=== PATIENT | female | born 1960 | race Caucasian/White ===

== ENCOUNTER 2017-06-06 14:00 | Outpatient (RCR) | payer OTHER, SELFPAY ==
--- NOTE | 2017-06-06 14:30 | HP.PTEVAL_ITS ---
Patient's Visit Information KATIANA ANTONIO is a 57 year old F referred to Physical Therapy by Arabella Mitchell MD with a diagnosis of cervicalagia. Date of Evaluation: 06/06/17 Physical Therapist: Guero Poole, PT, - Visit Plan Frequency: 2x /Week Duration: 6 Weeks Plan: Manula therapy cervical traction ..mobs OA/AA,C2-4,US/MHP,MECKENZIE EX' SPROGRESS TO CERVICAL /POSTURE AL EX'S - Subjective Subjective: This 57 y/o female presenst to physical therapy with cervicalagia. Patient has had pain since 2016 with dull ache in cervical spine upper c- spine. Tried massage tight muscles. Pateint had throidectomy 2 years ago.Patient symptoms constant with sypmtoms worse sitting ,driving,work demands at computer.Denies parathesia/tingling. Denies STARKS/tinnitus/nuasea. No PT/ chirprcator.Patient is working 1/2 days because pain. Pain affects ADLS' and housework activities. No trauma/injury. SOCAIL: . VOCATION:[employer] - Pain Bilateral Neck Pain Intensity (Out of 10): 8 Pain Intensity Range: 10 - Objective POSTURE: mild foward posture ,head foward. PALAPTION: tender UT/LEVATOR. NEURO : denies parathesia/tingling ,reflexes C5-6-7 2/3. BUE AROM: WFL. MMT: 4/5, shoulder 4-/5. CERVICAL ROM: flexion min loss,lateral /flexion left geater than right,extension min loss,retraction/protraction min loss. - Special Tests C/S Radiculapathy - Left Upper limb tension test: Negative C/S Radiculapathy - Right Upper limb tension test: Negative C/S Radiculapathy - Left Spurlings: Negative C/S Radiculapathy - Right Spurlings: Negative C/S Radiculapathy - Left Cervical distraction: Negative C/S Radiculapathy - Right Cervical distraction: Negative C/S Radiculapathy - Left Relief test: Negative C/S Radiculapathy - Right Relief test: Negative C/S Radiculapathy - Valsalva: Negative Sharp Ada: Negative Vertebral Artery Test: Negative Alar Ligament Test: Negative Cervical Sitting: Protrusion - Mechanical Response: No effect Cervical Sitting: Protrusion - Symptoms During Testing: Increases Cervical Sitting: Protrusion - Symptoms After Testing: No worse Cervical Sitting: Retraction - Mechanical Response: No effect Cervical Sitting: Retraction - Symptoms During Testing: No effect Cervical Sitting: Retraction - Symptoms After Testing: No effect - Goals Goal 1:: Independant with HEP Goal Time Frame: 4-6 Weeks Goal 2:: Independant with posture for ADL'S Goal Time Frame: 4-6 Weeks Goal 3:: Decrease cervical pain by 50% or greatee to improve function and ADL'S Goal Time Frame: 4-6 Weeks Goal 4:: Patient increase cervical ROM to WFL for function of recovery Goal Time Frame: 4-6 Weeks Goal 5:: Patient be able to perform ADLS' and job demnads with min limiations. Goal Time Frame: 4-6 Weeks Goal 6:: Patient be d/c to prophalxis Goal Time Frame: 4-6 Weeks - Rehabilitation Potential Physical Therapy Diagnosis: This patient has cervicalalgia with upper c-pine dysfunction with pain ,diffiulty with sitting,job demands ,pain with cervical ROM thus benifit from skilled PT Rehabilitation Potential: Good - Anticipated Interventions Patient/Client Instruction: Educate patient on: Condition, Plan of Care For the Purpose of:: To decrease pain, To increase ROM, To improve muscle performance and motor function, To improve ability to perform ADL's, To increase tolerance to activity/condition/position, To improve ability of physical actions for home/community/work/leisure, To improve health of tissue, To decrease soft tissue restriction, To increase flexibility/ROM, To reduce risk of recurrence, To improve ability to perform tasks related to life management Therapeutic Exercise to Include: Strength training, Postural training, Flexibilty training, Yumiko Exercises For the Purpose of:: To decrease pain, To increase ROM, To improve muscle performance and motor function, To improve ability to perform ADL's, To increase tolerance to activity/condition/position, To improve performance and independence with ADL's, To decrease level of supervision to perform tasks, To improve ability of physical actions for home/community/work/leisure, To improve health of tissue, To decrease soft tissue restriction, To increase flexibility/ ROM, To assume or resume ADL's, To improve ability to perform tasks related to life management Manual Therapy Techniques to Include: Mobilization, Soft tissue mobilization Comment: OA/AA C2-5,CERVICAL TRACTION For the Purpose of:: To decrease pain, To increase ROM, To improve nutrient delivery to tissue, To improve muscle performance and motor function, To decrease soft tissue restriction, To increase flexibility/ROM Thermo therapy (hot pack): Yes Ultrasound (thermal/non thermal): Yes Intermittent cervical traction: - 14-22# [id number] For the Purpose of:: To decrease pain, To increase ROM, To improve nutrient delivery to tissue, To increase oxygenation perfusion, To improve health of tissue, To decrease soft tissue restriction, To increase flexibility/ROM Thank you for the opportunity to evaluate your patient. For Medicare and Medicare HMO plans, please review the plan of care and approve it. It will need to be FAXED BACK to us at [phone] for Medicare purposes. Please let me know if there are questions or concerns regarding this plan of care. Physician Signature: Date:
--- NOTE | 2017-09-06 14:29 | HP.PTDCNRP_ITS ---
HP - Discharge Summary (1) - Patient Information KATIANA ANTONIO was seen in my office for initial evaluation on 06/06/17. The following Plan of Care was established for this patient: Initial Frequency: 2x /Week Initial Duration: 6 Weeks - Anticipated Interventions Patient/Client Instruction: Educate patient on: Condition, Plan of Care For the Purpose of:: To decrease pain, To increase ROM, To improve muscle performance and motor function, To improve ability to perform ADL's, To increase tolerance to activity/condition/position, To improve ability of physical actions for home/community/work/leisure, To improve health of tissue, To decrease soft tissue restriction, To increase flexibility/ROM, To reduce risk of recurrence, To improve ability to perform tasks related to life management Therapeutic Exercise to Include: Strength training, Postural training, Flexibilty training, Yumiko Exercises For the Purpose of:: To decrease pain, To increase ROM, To improve muscle performance and motor function, To improve ability to perform ADL's, To increase tolerance to activity/condition/position, To improve performance and independence with ADL's, To decrease level of supervision to perform tasks, To improve ability of physical actions for home/community/work/leisure, To improve health of tissue, To decrease soft tissue restriction, To increase flexibility/ ROM, To assume or resume ADL's, To improve ability to perform tasks related to life management Manual Therapy Techniques to Include: Mobilization, Soft tissue mobilization Comment: OA/AA C2-5,CERVICAL TRACTION For the Purpose of:: To decrease pain, To increase ROM, To improve nutrient delivery to tissue, To improve muscle performance and motor function, To decrease soft tissue restriction, To increase flexibility/ROM Thermo therapy (hot pack): Yes Ultrasound (thermal/non thermal): Yes Intermittent cervical traction: - -# [id number] For the Purpose of:: To decrease pain, To increase ROM, To improve nutrient delivery to tissue, To increase oxygenation perfusion, To improve health of tissue, To decrease soft tissue restriction, To increase flexibility/ROM This patient was last seen in our office 07/04/17. Pertinent comments regarding their Physical therapy will appear below: Patient seen for PT for cervicalalgia. PT focus on US /MHP, CERVICAL postural ex 's,manual therapy -STM . Patient was getting minmal better pain and STARKS ,thus is d/c to RTD. At this point I will be discontinuing this patient from physical therapy. I would be happy to see this patient again in the future if found appropriate by the physician. Thank you! Guero Poole, PT,
== END 2017-07-04 19:00 | disposition home or self-care (01) ==
LOC: PT 06-13 14:00
PROVIDERS: Family Provider Family Medicine; PCP Family Medicine; Visit Provider Family Medicine
DX: M54.2 Cervicalgia (principal)
CPT/HCPCS: 97012; 97035; 97110; 97140; 97161

== ENCOUNTER → 2018-05-11 14:19 | Outpatient (CLI) | payer OTHER, SELFPAY ==
--- NOTE | 2018-05-11 14:22 | BI_ITS ---
MAMMOGRAPHY - BILATERAL SCREENING REASON FOR EXAM: Female, 58 years old. Routine annual screening examination. PERTINENT HISTORY: Non-contributory. TECHNIQUE: Digital bilateral breast fausto (3D mammographic acquisition) in the CC and MLO projections. 2-D mediolateral oblique (MLO) and craniocaudad (CC) views of both breasts were obtained. CAD: Full Field Digital Mammography with Computer Added Detection was performed. COMPARISON: Comparison is made with prior study dated May 04, 2017 and March 25, 2016. FINDINGS: Breast Composition: There are scattered areas of fibroglandular density. There are no dominant masses or suspicious calcifications. No other significant abnormalities are identified. There has been no significant change since the prior study. BI/SCREENING MAMM (CAD), BILAT IMPRESSION: Stable bilateral screening mammogram. Yearly follow-up mammogram recommended. (A) ASSESSMENT CATEGORY: BIRADS Category 1: Negative. A letter regarding these results will be sent to the patient by the facility within 30 days. Approximately 10% of breast cancers are not detected by mammography. A normal mammogram should not delay biopsy of a clinically suspicious abnormality. [id number] Electronically Signed: Cyrus No MD at 15:39 EDT Tel [phone], Service support ,
== END ==
PROVIDERS: Family Provider Family Medicine; PCP Family Medicine; Referring Provider Family Medicine; Visit Provider Family Medicine
DX: Z12.31 Encounter for screening mammogram for malignant neoplasm of breast (principal)
CPT/HCPCS: 77063; 77067

== ENCOUNTER → 2019-05-13 15:28 | Outpatient (CLI) | payer OTHER, SELFPAY ==
--- NOTE | 2019-05-13 15:31 | BI_ITS ---
MAMMOGRAPHY - BILATERAL SCREENING REASON FOR EXAM: Female, 59 years old. Routine annual screening examination. PERTINENT HISTORY: Non-contributory. TECHNIQUE: Digital bilateral breast macrina (3D mammographic acquisition) in the CC and MLO projections. 2-D mediolateral oblique (MLO) and craniocaudad (CC) views of both breasts were obtained. CAD: Full Field Digital Mammography with Computer Added Detection was performed. COMPARISON: Comparison is made with prior study dated May 11, 2018 and May 04, 2017. FINDINGS: Breast Composition: There are scattered areas of fibroglandular density. There are no dominant masses or suspicious calcifications. No other significant abnormalities are identified. There has been no significant change since the prior study. BI/SCREEN MAMM (CAD) W/MACRINA BILAT IMPRESSION: Stable bilateral screening mammogram. Yearly follow-up mammogram recommended. (A) ASSESSMENT CATEGORY: BIRADS Category 1: Negative. A letter regarding these results will be sent to the patient by the facility within 30 days. Approximately 10% of breast cancers are not detected by mammography. A normal mammogram should not delay biopsy of a clinically suspicious abnormality. [id number] Electronically Signed: Cyrus No, at 8:41 EDT , Service support ,
== END ==
PROVIDERS: Family Provider Family Medicine; PCP Family Medicine; Referring Provider Family Medicine; Visit Provider Family Medicine
DX: Z12.31 Encounter for screening mammogram for malignant neoplasm of breast (principal)
CPT/HCPCS: 77063; 77067

== ENCOUNTER → 2019-05-21 18:00 | Outpatient (CLI) | payer OTHER, SELFPAY | PROVIDERS: Family Provider Family Medicine; PCP Family Medicine; Referring Provider Family Medicine; Visit Provider Family Medicine | DX: R19.7 Diarrhea, unspecified (principal) | CPT/HCPCS: 87177; 87209; 87493; 87506 ==

== ENCOUNTER → 2019-05-23 07:54 | Outpatient (CLI) | payer OTHER, SELFPAY ==
--- NOTE | 2019-05-23 08:01 | US_ITS ---
STUDY: ABDOMINAL ULTRASOUND - RIGHT UPPER QUADRANT REASON FOR VISIT: Female, 59 years old diarrhea TECHNIQUE: Ultrasound evaluation of the right upper quadrant was performed with real-time and static meek-scale imaging. TECHNICAL QUALITY: Adequate. COMPARISON: Prior study of 09/10/2015 FINDINGS: Liver: The liver measures 16.7 cm. There is normal echogenicity of the liver. The bile ducts are within normal limits. There is hepatic color flow. The direction of portal flow is hepatopetal. There is a 9 x 7 x 8 mm echogenic focus of the right hepatic lobe which may represent a small meningioma. Gallbladder: Normal distended gallbladder. The gallbladder wall measures 2.6 mm. There is a negative sonographic Greenwood's sign. There is no pericholecystic fluid. There are no gallstones. Common Bile Duct (C.B.D.): The common bile duct measures 1.6 mm. Pancreas: Normal size of the head, body and tail of the pancreas. There is normal echogenicity of the pancreas. There is no demonstrated pancreatic mass or cyst. Right Kidney: Normal size of the right kidney. The right kidney measures 11.4 x 4.3 x 5.1 cm. Normal renal cortex. The right cortex measures 1.5 cm. There is a 1.2 x 1.3 x 1.0 cm cyst. There is a nonobstructing calculus measuring 0.5 x 0.5 x 0.4 cm. There is no right hydronephrosis. US/Abdomen Limited IMPRESSION: Echogenic focus of the right hepatic lobe measuring 9 x 7 x 8 mm which may represent a small hemangioma. Small cyst and small nonobstructing calculus of the right kidney. Electronically Signed: Дмитрий Moura MD at 17:31 EDT , Service support ,
== END ==
PROVIDERS: Family Provider Family Medicine; PCP Family Medicine; Referring Provider Family Medicine; Visit Provider Family Medicine
DX: R19.7 Diarrhea, unspecified (principal)
CPT/HCPCS: 76705

== ENCOUNTER → 2019-06-03 11:08 | Outpatient (CLI) | payer OTHER, SELFPAY ==
--- NOTE | 2019-06-03 11:10 | NM_ITS ---
CLINICAL: 59-year-old female with reported history of right upper quadrant abdominal pain. RADIONUCLIDE HEPATOBILIARY SCINTIGRAPHY COMPARISON: Abdominal ultrasound report 05/23/2019, CCK hepatobiliary scintigraphy report 09/22/2015 FINDINGS: Following the intravenous administration of 5.2 mCi of 99m Tc Mebrofenin, hepatobiliary images reveal: 1. Relatively prompt and homogeneous radiopharmaceutical concentration is noted by a normal sized liver. No parenchymal defects are identified. 2. Gallbladder activity is identified at 10 minutes post radiopharmaceutical administration. 3. Small intestinal tract is observed at 15 minutes following tracer injection. 4. Washout of the radiopharmaceutical by the hepatic parenchyma appears qualitatively normal. 5. There is scintigraphic evidence of pre-CCK duodenal gastric reflux. Cholecystokinin (0.02 ug/kg) was administered intravenously over a 30-minute period. The post CCK gallbladder ejection fraction calculated at 20 minutes following Cholecystokinin administration was noted to be 61.0 % (normal greater than 35%). During 30 minutes of post CCK imaging, there is no scintigraphic evidence of reflux of the radiotracer into the common hepatic duct or refilling of the gallbladder. There is scintigraphic evidence of continued post CCK duodenal gastric reflux. NM/Hepatobilliary Img w/Pharm Int IMPRESSION: 1. A gallbladder ejection fraction calculated to be greater than 35% following the administration of Cholecystokinin makes the probability of functional hepatobiliary disease (gallbladder and/or sphincter of Oddi dyskinesia) and/or organic hepatobiliary disease (chronic acalculous cholecystitis and/or cystic duct syndrome) to be low. (Yenifer Solomon et al, Journal of Nuclear Medicine 32:1695, 1990). 2. There is scintigraphic evidence of pre-post CCK duodenal-gastric reflux. (Gloria et al, Nucl Med Tamia Ashley Press pg. 35, 1980). 3. Overall compared to the previous CCK hepatobiliary scintigraphy study report dated 09/22/2015, there is no significant interval change. Electronically Signed: Raffaele Washington DO at 22:05 EDT Tel , Service support ,
== END ==
PROVIDERS: Family Provider Family Medicine; PCP Family Medicine; Referring Provider Family Medicine; Visit Provider Family Medicine
DX: R19.7 Diarrhea, unspecified (principal)
CPT/HCPCS: 78227; A9537; J2805

== ENCOUNTER → 2019-08-20 11:10 | Outpatient (CLI) | payer OTHER, SELFPAY | PROVIDERS: Family Provider Family Medicine; PCP Family Medicine; Referring Provider Family Medicine; Visit Provider Family Medicine | DX: E03.9 Hypothyroidism, unspecified (principal) | CPT/HCPCS: 36415 ==

== ENCOUNTER → 2020-05-21 09:52 | Outpatient (CLI) | payer OTHER, SELFPAY ==
--- NOTE | 2020-05-21 09:56 | BI_ITS ---
MAMMOGRAPHY - BILATERAL SCREENING REASON FOR EXAM: Female, 60 years old. Routine annual screening examination. PERTINENT HISTORY: Non-contributory. TECHNIQUE: Digital bilateral breast macrina (3D mammographic acquisition) in the CC and MLO projections. 2-D mediolateral oblique (MLO) and craniocaudad (CC) views of both breasts were obtained. CAD: Full Field Digital Mammography with Computer Added Detection was performed. COMPARISON: Comparison is made with prior study dated 05/13/2019 05/11/2018. FINDINGS: Breast Composition: There are scattered areas of fibroglandular density. There are no dominant masses or suspicious calcifications. No other significant abnormalities are identified. There has been no significant change since the prior study. BI/SCREEN MAMM (CAD) W/MACRINA BILAT IMPRESSION: Stable bilateral screening mammogram. Yearly follow-up mammogram recommended. (A) ASSESSMENT CATEGORY: BIRADS Category 1: Negative. A letter regarding these results will be sent to the patient by the facility within 30 days. Approximately 10% of breast cancers are not detected by mammography. A normal mammogram should not delay biopsy of a clinically suspicious abnormality. [id number] Electronically Signed: Cyrus No, at 12:22 EDT , Service support ,
== END ==
PROVIDERS: PCP Family Medicine; Referring Provider Family Medicine; Visit Provider Family Medicine
DX: Z12.31 Encounter for screening mammogram for malignant neoplasm of breast (principal)
CPT/HCPCS: 77063; 77067

== ENCOUNTER → 2020-09-09 | Outpatient (CLI) | payer OTHER, SELFPAY | END | disposition home or self-care (01) | LOC: LABSPEC 15:10 | PROVIDERS: PCP Family Medicine; Referring Provider Family Medicine; Visit Provider Family Medicine | DX: Z20.822 Contact with and (suspected) exposure to COVID-19 (principal) | CPT/HCPCS: 87635; U0005; U0003 ==

== ENCOUNTER → 2020-09-21 16:53 | Outpatient (CLI) | payer OTHER, SELFPAY ==
--- NOTE | 2020-09-21 16:57 | RAD_ITS ---
STUDY: X-RAY CHEST REASON FOR EXAM: Female, 60 years old. COUGH, CHEST CONGESTION, SINUS ISSUES x4 WEEKS, TREATED WITH Z-PACK- NO IMPROVEMENT TECHNIQUE: PA and lateral views of the chest. COMPARISON: 06/27/2013. FINDINGS: The lungs are clear and expanded. There is no demonstrated pleural abnormality. Normal size heart. Normal mediastinum and kelly. Normal visualized pulmonary arteries. There is atherosclerotic calcification of the aortic arch with tortuosity. Normal visualized thoracic spine. Normal visualized ribs, clavicles, and shoulders. Nonspecific increased gas pattern throughout the bowel. RAD/Chest PA and Lateral IMPRESSION: No acute cardiopulmonary disease. Electronically Signed: Edwige Villagomez MD at 0:39 EST , Service support ,
== END ==
PROVIDERS: PCP Family Medicine; Referring Provider Family Medicine; Visit Provider Family Medicine
DX: J40 Bronchitis, not specified as acute or chronic (principal)
CPT/HCPCS: 71046

== ENCOUNTER 2020-10-23 13:46 | Outpatient (RCR) | payer OTHER, SELFPAY ==
[2020-10-23] MEDS: COVID-19 VACC, MRNA(PFIZER)/PF 30 MCG/0.3 ML SYRINGE IM (13:41)
[2020-11-13] MEDS: COVID-19 VACC, MRNA(PFIZER)/PF 30 MCG/0.3 ML SYRINGE IM (13:22)
== END 2021-01-19 23:59 ==
LOC: IMMUN 13:46
PROVIDERS: PCP Family Medicine; Visit Provider Family Medicine
DX: Z23 Encounter for immunization (principal)
CPT/HCPCS: 0001A; 0002A; 91300

== ENCOUNTER → 2020-12-07 10:08 | Outpatient (CLI) | payer OTHER, SELFPAY | PROVIDERS: PCP Family Medicine; Visit Provider Family Medicine | DX: E03.9 Hypothyroidism, unspecified (principal) ==

== ENCOUNTER → 2021-05-06 | Outpatient (CLI) | payer OTHER, SELFPAY | END | disposition home or self-care (01) | LOC: LABSPEC 16:24 | PROVIDERS: PCP Family Medicine; Referring Provider Family Medicine; Visit Provider Family Medicine | DX: U07.1 COVID-19 (principal) | CPT/HCPCS: 87635; U0005; U0003 ==

== ENCOUNTER → 2021-05-28 08:31 | Outpatient (CLI) | payer OTHER, SELFPAY ==
--- NOTE | 2021-05-28 08:32 | BI_ITS ---
MAMMOGRAPHY - BILATERAL SCREENING REASON FOR EXAM: Female, 61 years old. Routine annual screening examination. PERTINENT HISTORY: Non-contributory. TECHNIQUE: Digital bilateral breast macrina (3D mammographic acquisition) in the CC and MLO projections. 2-D mediolateral oblique (MLO) and craniocaudad (CC) views of both breasts were obtained. CAD: Full Field Digital Mammography with Computer Added Detection was performed. COMPARISON: Comparison is made with prior study 05/21/2020 and 05/13/2009. FINDINGS: Breast Composition: There are scattered areas of fibroglandular density. There are no dominant masses or suspicious calcifications. No other significant abnormalities are identified. There has been no significant change since the prior study. BI/SCRN MAMM (CAD)W/MACRINA BILAT IMPRESSION: Stable bilateral screening mammogram. Yearly follow-up mammogram recommended. (A) ASSESSMENT CATEGORY: BIRADS Category 1: Negative. A letter regarding these results will be sent to the patient by the facility within 30 days. Approximately 10% of breast cancers are not detected by mammography. A normal mammogram should not delay biopsy of a clinically suspicious abnormality. [id number] Electronically Signed: Cyrus No MD at 9:39 EDT , Service support ,
== END ==
PROVIDERS: PCP Family Medicine; Referring Provider Family Medicine; Visit Provider Family Medicine
DX: Z12.31 Encounter for screening mammogram for malignant neoplasm of breast (principal)
CPT/HCPCS: 77063; 77067

== ENCOUNTER 2021-11-09 16:38 | Outpatient (CLI) | payer BC, SELFPAY | END 2021-11-09 23:59 | disposition home or self-care (01) | LOC: MFPLAB 16:40 | PROVIDERS: PCP Family Medicine; Referring Provider Family Medicine; Visit Provider Family Medicine | DX: E03.9 Hypothyroidism, unspecified (principal) | CPT/HCPCS: 36415 ==

== ENCOUNTER → 2022-05-18 | Outpatient (CLI) | payer BC, SELFPAY ==
--- NOTE | 2022-05-18 12:11 | RAD_ITS ---
HISTORY: pain. TECHNIQUE: XR Ribs Unilateral Min 2 Views. COMPARISON: Chest 09/21/2020. FINDINGS: BONES : Nondisplaced fractures of the left eighth, ninth, and 10th ribs anteriorly. SOFT TISSUES: Left lung clear. RAD/Ribs Unil 2V No CXR IMPRESSION: Nondisplaced fractures of the anterior left eighth, ninth, and 10th ribs. Electronically Signed: Mary Ellen White MD at 16:28 EDT ,
== END | disposition home or self-care (01) ==
LOC: MTRAD 11:58
PROVIDERS: PCP Family Medicine; Referring Provider Family Medicine; Visit Provider Family Medicine
DX: R07.81 Pleurodynia (principal)
CPT/HCPCS: 71100

== ENCOUNTER → 2022-05-31 | Outpatient (CLI) | payer BC, SELFPAY ==
--- NOTE | 2022-05-31 08:30 | BI_ITS ---
MAMMOGRAPHY - BILATERAL SCREENING REASON FOR EXAM: Female, 62 years old. Routine annual screening examination. PERTINENT HISTORY: Non-contributory. TECHNIQUE: Digital bilateral breast macrina (3D mammographic acquisition) in the CC and MLO projections. 2-D mediolateral oblique (MLO) and craniocaudad (CC) views of both breasts were obtained. CAD: Full Field Digital Mammography with Computer Added Detection was performed. COMPARISON: Comparison is made with prior study dated 05/28/2021 and 05/21/2020. FINDINGS: Breast Composition: There are scattered areas of fibroglandular density. There are no dominant masses or suspicious calcifications. No other significant abnormalities are identified. There has been no significant change since the prior study. BI/SCRN MAMM (CAD)W/MACRINA BILAT IMPRESSION: Stable bilateral screening mammogram. Yearly follow-up mammogram recommended. (A) ASSESSMENT CATEGORY: BIRADS Category 1: Negative. A letter regarding these results will be sent to the patient by the facility within 30 days. Approximately 10% of breast cancers are not detected by mammography. A normal mammogram should not delay biopsy of a clinically suspicious abnormality. [id number] Electronically Signed: Cyrus No MD at 9:20 EDT ,
== END | disposition home or self-care (01) ==
LOC: OPBI 08:29
PROVIDERS: PCP Family Medicine; Referring Provider Family Medicine; Visit Provider Family Medicine
DX: Z12.31 Encounter for screening mammogram for malignant neoplasm of breast (principal)
CPT/HCPCS: 77063; 77067

== ENCOUNTER → 2022-08-16 | Outpatient (CLI) | payer BC, SELFPAY ==
--- NOTE | 2022-08-16 16:44 | CT_ITS ---
EXAM: CT MAXILLOFACIAL SINUSES WITHOUT INTRAVENOUS CONTRAST CLINICAL INDICATION: CHRONIC SINUSITIS TECHNIQUE: Helically acquired images were obtained of the maxillofacial sinuses without intravenous contrast. This CT exam was performed using one or more of the following dose reduction techniques: automated exposure control, adjustment of the mA and/or kV according to patient size, and/or use of iterative reconstruction technique. This report was created using [employer]iq report BrightContext technology. COMPARISON: None. FINDINGS: MAXILLARY SINUSES: There is mucosal thickening in the maxillary sinuses and scattered ethmoid air cells. No air-fluid levels are identified. There is soft tissue in the ostiomeatal complexes bilaterally. SPHENOID SINUSES: Clear. FRONTAL SINUSES: Clear. ETHMOID AIR CELLS: See above. NASAL CAVITY/SEPTUM: Nasal septum is midline. Nasal turbinates are unremarkable. BONES/JOINTS: Anterior cranial fossa is unremarkable. ORBITS: Unremarkable. DENTAL: Unremarkable as visualized. No periodontal osseous erosion. CT/Sinus/Facial Bone IMPRESSION: Mucosal thickening in the maxillary and ethmoid sinuses compatible with chronic sinusitis. No air-fluid levels are identified. There is soft tissue and mucosal thickening in the ostiomeatal complexes. Electronically Signed: Sedrick Leyva MD at 18:17 EST ,
== END | disposition home or self-care (01) ==
LOC: CT 16:43
PROVIDERS: PCP Family Medicine; Referring Provider Otolaryngology; Visit Provider Otolaryngology
DX: J32.8 Other chronic sinusitis (principal)
CPT/HCPCS: 70486

== ENCOUNTER → 2022-10-12 | Outpatient (CLI) | payer BC, SELFPAY ==
--- NOTE | 2022-10-12 15:09 | RAD_ITS ---
EXAM: XR ABDOMEN, 2 VIEWS CLINICAL INDICATION: ABD PAIN TECHNIQUE: Frontal view of the abdomen/pelvis with upright view of the abdomen. This report was created using Marco Vasco report generation technology. COMPARISON: None. FINDINGS: LOWER THORAX: No acute pathology. INTRAPERITONEAL SPACE: No free air. GASTROINTESTINAL TRACT: Unremarkable. Non-obstructive. No bowel or stomach distention. ORGANS: Unremarkable as visualized. No organomegaly. No abnormal calcifications. BONES/JOINTS: No acute pathology. SOFT TISSUES: No acute pathology. RAD/Abd Inc Decub and/or Erect IMPRESSION: Unremarkable abdominal series. Electronically Signed: Conor Holly MD at 0:42 EST ,
--- NOTE | 2022-10-12 15:09 | RAD_ITS ---
EXAM: XR LEFT FOOT COMPLETE, 3 OR MORE VIEWS CLINICAL INDICATION: TOE PAIN TECHNIQUE: Frontal, lateral and oblique views of the left foot. This report was created using Pley report generation technology. COMPARISON: None. FINDINGS: BONES/JOINTS: Unremarkable. No acute fracture. No subluxation. Normal alignment. Preservation of the joint space. No sclerotic or destructive changes observed. SOFT TISSUES: Unremarkable. No soft tissue swelling or gas. No radiopaque foreign body. RAD/Foot min 3 Views IMPRESSION: Negative left foot x-rays. Electronically Signed: Conor Holly MD at 0:35 EST ,
== END | disposition home or self-care (01) ==
LOC: MTRAD 15:08
PROVIDERS: PCP Family Medicine; Visit Provider Family Medicine
DX: R10.12 Left upper quadrant pain (principal); M79.675 Pain in left toe(s)
CPT/HCPCS: 73630; 74019

== ENCOUNTER → 2022-10-24 | Outpatient (CLI) | payer BC, SELFPAY | END | disposition home or self-care (01) | LOC: MFPLAB 09:27 | PROVIDERS: PCP Family Medicine; Visit Provider Podiatrist | DX: M79.675 Pain in left toe(s) (principal) ==

== ENCOUNTER → 2022-11-09 | Outpatient (CLI) | payer BC, SELFPAY | END | disposition home or self-care (01) | LOC: MFPLAB 15:39 | PROVIDERS: PCP Family Medicine; Referring Provider Family Medicine; Visit Provider Family Medicine | DX: Z00.00 Encounter for general adult medical examination without abnormal findings (principal) | CPT/HCPCS: 36415 ==

== ENCOUNTER → 2022-11-17 | Outpatient (CLI) | payer BC, SELFPAY ==
--- NOTE | 2022-11-17 08:47 | US_ITS ---
STUDY: ABDOMINAL ULTRASOUND - RIGHT UPPER QUADRANT REASON FOR VISIT: Female, 62. Abdominal pain. TECHNIQUE: Ultrasound evaluation of the right upper quadrant was performed with real-time and static meek-scale imaging. TECHNICAL QUALITY: Adequate. COMPARISON: CT dated August 15, 2013 FINDINGS: Liver: The liver is diffusely echogenic consistent with fatty infiltration. The bile ducts are within normal limits. There is hepatic color flow. The direction of portal flow is hepatopetal. Gallbladder: Normal distended gallbladder. No gallbladder wall thickening. There is a negative sonographic Greenwood''s sign. There is no pericholecystic fluid. There are no gallstones. Common Bile Duct (C.B.D.): The common bile duct measures 4.4 mm. Pancreas: Normal size of the head and body of the pancreas. There is nonvisualization of the tail secondary to overlying bowel gas. There is normal echogenicity of the pancreas. There is no demonstrated pancreatic mass or cyst. Right Kidney: Normal size of the right kidney. The right kidney measures 11.2 cm in length. Normal renal cortex. There is a 1.1 x 1.1 cm cyst. There is a nonobstructing calculus measuring up to 6 mm. There is no right hydronephrosis. US/Abdomen Limited IMPRESSION: Fatty infiltration of the liver. Nonobstructing submillimeter right renal calculus. 1.1 cm right renal cyst. Electronically Signed: Michela Duran MD at 8:40 EDT ,
== END | disposition home or self-care (01) ==
PROVIDERS: PCP Family Medicine; Referring Provider Family Medicine; Visit Provider Family Medicine
DX: R10.12 Left upper quadrant pain (principal)
CPT/HCPCS: 76705

== ENCOUNTER → 2022-12-12 | Outpatient (CLI) | payer BC, SELFPAY ==
--- NOTE | 2022-12-12 09:33 | NM_ITS ---
CLINICAL: 62-year-old female with history of upper quadrant abdominal pain. RADIONUCLIDE HEPATOBILIARY SCINTIGRAPHY COMPARISON: Hepatobiliary scintigraphy study dated 06/03/2019, abdominal ultrasound report 12/07/2022 FINDINGS: Following the intravenous administration of 5.43 mCi of 99m Tc Mebrofenin, hepatobiliary images reveal: 1. Relatively prompt and homogeneous radiopharmaceutical concentration is noted by a normal sized liver. No parenchymal defects are identified. 2. Gallbladder activity is identified at 30 minutes post radiopharmaceutical administration. 3. Small intestinal tract is observed at 30 minutes following tracer injection. 4. Washout of the radiopharmaceutical by the hepatic parenchyma appears qualitatively normal. Cholecystokinin (0.02 ug/kg) was administered intravenously over a 30-minute period. The post CCK gallbladder ejection fraction calculated at 25 minutes following Cholecystokinin administration was noted to be 78 % (normal greater than 35%) compared to 61.0% calculated on the examination dated 06/03/2019. During 30 minutes of post CCK imaging, there is no scintigraphic evidence of reflux of the radiotracer into the common hepatic duct or refilling of the gallbladder. [place]/Hepatobilliary Img w/Pharm Int IMPRESSION: 1. NORMAL 99m Tc Mebrofenin hepatobiliary imaging examination with Cholecystokinin. A. A gallbladder ejection fraction calculated to be greater than 35% following the administration of Cholecystokinin makes the probability of functional hepatobiliary disease (gallbladder and/or sphincter of Oddi dyskinesia) and/or organic hepatobiliary disease (chronic acalculous cholecystitis and/or cystic duct syndrome) to be low. (Yenifer Solomon et al, Journal of Nuclear Medicine 32:1695, 1990). B. Overall compared to the previous hepatobiliary scintigraphy study dated 06/03/2019, there is no definitive interval change. Electronically Signed: Raffaele Washington, at 19:25 EDT ,
== END | disposition home or self-care (01) ==
LOC: NM 09:28
PROVIDERS: PCP Family Medicine; Referring Provider Family Medicine; Visit Provider Family Medicine
DX: R10.12 Left upper quadrant pain (principal)
CPT/HCPCS: 78227; A9537; J2805

== ENCOUNTER → 2022-12-14 | Outpatient (CLI) | payer BC, SELFPAY ==
--- NOTE | 2022-12-14 16:34 | CT_ITS ---
STUDY: CT ABDOMEN WITH CONTRAST REASON FOR EXAM: Female, 62 years old. Left upper quadrant pain, bloating x 1 month. RADIATION DOSAGE (If Supplied By Facility): CTDIvol = ( 8.75 ) mGy, DLP = ( 265.83 ) mGycm TECHNIQUE: Transaxial images were obtained post I.V. administration of IV 100mL Isovue-300, and all oral contrast. Sagittal and coronal images were reconstructed. Individualized dose optimization techniques were used for this CT. COMPARISON: 08/15/2013. FINDINGS: The visualized lung bases are unremarkable. The visualized portions of the heart are within normal limits. Normal liver. Normal gallbladder and extrahepatic biliary system. Normal spleen. Normal pancreas. Normal bilateral adrenal glands. Right kidney has a 3 mm nonobstructing upper pole stone, and a 1.3 cm mid renal cyst, otherwise normal right kidney. Normal left kidney. Evaluation of the GI tract is limited by absence of oral contrast. Cannot exclude stomach wall thickening. No dilated loops of bowel or evidence for obstruction. Cannot exclude segmental thickening of the andrew of the small or large bowel. Cannot exclude enteritis or colitis. Moderate diffuse fecal retention. Appendix is not seen. Normal abdominal aorta. Normal inferior vena cava. Normal retroperitoneum. Normal abdominal wall. Normal osseous structures. CT/Abdomen WITH IV Contrast IMPRESSION: No definite acute or significant abnormality seen. Electronically Signed: Mehul Richard MD at 17:07 EDT ,
== END | disposition home or self-care (01) ==
LOC: CT 16:33
PROVIDERS: PCP Family Medicine; Referring Provider Family Medicine; Visit Provider Family Medicine
DX: R10.12 Left upper quadrant pain (principal)
CPT/HCPCS: 74160; Q9967

== ENCOUNTER → 2022-12-14 | Outpatient (CLI) | payer BC, SELFPAY ==
[2022-12-14 18:00] LABS: Absolute Lymphocyte Count 2.29 X10^3/uL (0.83-4.51); Absolute Neutrophil Count 3.1 X10^3/uL (2.0-7.7); Basophil# 0.03 X10^3/uL; Basophil% 0.5 % (0-1); Eosinophil# 0.15 X10^3/uL; Eosinophils% 2.5 % (0-5); Hematocrit 45.8 % (37-47); Hemoglobin 15.3 g/dL (12.0-15.0); Lymphocyte # 2.29 X10^3/ul (0.83-4.51); Lymphocyte % 37.9 % (19-41); Mean Corp Hgb Conc 33.4 g/dL (32-36); Mean Corpuscular Hgb 32.8 pg (27.0-32.0); Mean Corpuscular Volume 98.3 fL (81-99); Mean Platelet Vol. 10.8 fl (6.2-12.0); Monocyte# 0.48 X10^3/uL; Monocyte% 7.9 % (0-10); NRBC Flagged by Analyzer 0 % (0-5); Neutrophil # 3.09 X10^3/uL (2.7-7.7); Platelet Count 173 K/mm3 (150-450); RBC Distribution Width CV 11.9 % (11.6-14.6); Red Blood Count 4.66 M/mm3 (4.2-5.4); White Blood Count 6.1 K/mm3 (4.4-11.0)
[2022-12-14 18:16] LABS: Amylase 51 U/L (25-115); Lipase 61 U/L (13-75)
[2022-12-14 18:37] LABS: Erythrocyte Sedimentation Rate 5 mm/hr (0-30)
== END | disposition home or self-care (01) ==
LOC: MFPLAB 16:14
PROVIDERS: PCP Family Medicine; Visit Provider Family Medicine
DX: R10.12 Left upper quadrant pain (principal)
CPT/HCPCS: 36415; 82150; 83690; 85025; 85652

== ENCOUNTER 2023-01-02 09:04 | Emergency (ER) | payer BC, SELFPAY ==
[2023-01-02 09:06] VITALS: BP 140/68; PULSE 101; RESP 18; TEMP 36.6; O2SAT 98; BMI 22.6
--- NOTE | 2023-01-02 09:16 | RAD_ITS ---
INDICATION: Pain EXAMINATION/TECHNIQUE: X-RAY - XR Abdomen Series W/ Chest 1 View COMPARISON: : October 12, 2022 FINDINGS: --Chest: LINES/DEVICES: None. LUNGS: No consolidation, edema or effusion. No pneumothorax. MEDIASTINUM AND CARDIOVASCULAR STRUCTURES: Cardiac silhouette not enlarged. Central airways and mediastinal contour are unremarkable. BONES AND SOFT TISSUES: No acute findings. --Abdomen: BOWEL GAS PATTERN: Non-obstructive. No bowel or stomach distention. FREE AIR: None visualized. CALCIFICATIONS: No abnormal calcifications observed. BONES AND SOFT TISSUES: No acute findings. There is a stable appearing Vicky lobe of the liver. RAD/Acute Abdomen Inc Chest IMPRESSION: Negative chest and abdominal series. Electronically Signed: Michela Duran MD at 10:24 EDT ,
[2023-01-02 09:39] LABS: Absolute Neutrophil Count 2.4 X10^3/uL (2.0-7.7); Basophil# 0.04 X10^3/uL; Basophil% 0.8 % (0-1); Eosinophil# 0.15 X10^3/uL; Eosinophils% 2.9 % (0-5); Hematocrit 49.9 % (37-47); Hemoglobin 17.1 g/dL (12.0-15.0); Lymphocyte % 40.9 % (19-41); Mean Corp Hgb Conc 34.3 g/dL (32-36); Mean Corpuscular Hgb 33.1 pg (27.0-32.0); Mean Corpuscular Volume 96.7 fL (81-99); Mean Platelet Vol. 9.9 fl (6.2-12.0); Monocyte% 7.8 % (0-10); NRBC Flagged by Analyzer 0 % (0-5); Neutrophil # 2.43 X10^3/uL (2.7-7.7); Neutrophil % 47.4 % (47-70); Platelet Count 153 K/mm3 (150-450); RBC Distribution Width CV 11.9 % (11.6-14.6); RBC Distribution Width SD 42.7 fl (35.1-43.9); Red Blood Count 5.16 M/mm3 (4.2-5.4); White Blood Count 5.1 K/mm3 (4.4-11.0)
[2023-01-02] MEDS: 0.9% Normal Saline 1,000 ML 1000 ML IV (09:40)
[2023-01-02] MEDS: Dicyclomine 20 MG/2 ML Vial IM (09:40)
[2023-01-02] MEDS: Ketorolac 15 MG/ML Vial IV (09:40)
[2023-01-02] MEDS: Metoclopramide 10 MG/2 ML Vial IV (09:40)
[2023-01-02 09:53] LABS: ALB/GLOB Ratio 0.9 RATIO (0.9-2.4); AST(SGOT) 46 U/L (15-37); Alanine Aminotransfer ALT/SGPT 57 U/L (13-56); Albumin, Serum 3.6 g/dL (3.2-5.0); Alkaline Phosphatase 95 U/L (45-117); Anion Gap 8 (5-15); BUN 11 mg/dL (7-18); BUN/Creat Ratio 24.6 RATIO (10-20); Calcium,Total 8.5 mg/dL (8.5-10.1); Chloride 106 mmol/L (98-107); Creatinine, Serum 0.45 mg/dL (0.55-1.02); EST Glomerular Filtration Rate 151 mL/min (>60); Est Glom Filt Rate - Afr Amer 183 mL/min (>60); Estimated Creatinine Clearance 100.61 ml/min; Globulin 3.8 g/dL (2.2-4.2); Glucose 105 mg/dL (74-106); Lipase 43 U/L (13-75); Potassium 3.6 mmol/L (3.5-5.1); Protein, Total 7.4 g/dL (6.4-8.2); Sodium Level 143 mmol/L (136-145)
[2023-01-02 10:40] LABS: Mucous, Urine 0 SEEN /hpf (<or=2+); Red Blood Cells-Urine 0 SEEN /hpf (0-5); Squamous Epithelial Cells - UA 0 SEEN /hpf (5-10)
[2023-01-02 10:56] LABS: Color, Urine Yellow (Yellow); Glucose, Dipstick Normal (Normal); Ketone-Dipstick 15 mg/dl (Negative); Leukocyte Esterase-Dipstick 100 /ul (Negative); Nitrite-Dipstick Negative (Negative); Occult Blood-Urine 10 /ul (Negative); Protein-Dipstick 30 mg/dl (Negative); Specific Gravity, Urine 1.015 (1.002-1.030); Urine Bilirubin Dipstick Negative (Negative); Urine Clarity Clear (Clear); Urine Urobilinogen Normal (Normal); Urine pH 6.5 (5.0 - 8.0)
[2023-01-02 11:08] LABS: White Blood Cells 5-10 SEEN /hpf (0-5)
[2023-01-02 11:09] LABS: Bacteria RARE /hpf (None Seen)
[2023-01-02 12:28] VITALS: BP 112/58; PULSE 87; RESP 16; O2SAT 94
--- NOTE | 2023-01-02 13:25 | EX.ED.DYSGE1 ---
HPI History of Present Illness Chief Complaint: Abd Pain Narrative Narrative: Patient is a 62-year-old female who is presenting to the ER because she believes that she has a stool obstruction. Patient's been having intermittent abdominal pain for the last several weeks. Patient's had 2 different CAT scans, ultrasounds of her abdomen with no answers. Patient states she has had small hard pieces of stool in the last couple days. Patient's been using [id number] laxatives with no relief. Patient was told that she had a stool obstruction from a CAT scan that was done on December 14. Patient continues to have intermittent abdominal pain, so she is coming into the ER today for reevaluation on January 02. No nausea, vomiting, fever. No other bowel or bladder changes . Patient has no fever or chills. No chest pain or shortness of breath. No bowel or bladder changes besides diarrhea for the laxatives that she has been using. Patient states that she has a left upper quadrant fullness intermittently that is not subsiding. Patient did have a colonoscopy years ago with no acute findings. PFSH PFSH Home Medications Omeprazole [Prilosec] 40 mg PO DAILY 12/10/15 [History Last Taken 11/26/15] ciprofloxacin HCl 500 mg tablet 500 mg PO BID #6 TABLETS 01/02/23 [Rx Last Taken Unknown] Allergy/AdvReac Type Severity Reaction Status Date / Time No Known Allergies Allergy Verified 01/02/23 09:05 Social History Smoking Status: Never smoker ROS ROS ED ROS Narrative REVIEW OF SYSTEMS: Unless otherwise stated in this report the patient's positive and negative responses for review of systems for constitutional, eyes, ENT, cardiovascular, respiratory, gastrointestinal, neurological, , musculoskeletal, and integument systems and related systems to the presenting problem are either stated in the history of present illness or were not pertinent or were negative for the symptoms and/or complaints related to the presenting medical problem. EXAM Physical Exam Narrative Exam Narrative: Vital signs reviewed and patient is not hypoxic. General: The patient appears well and in no apparent distress. Patient is resting comfortably on cart. Not toxic, lethargic, or listless. Skin: Warm, dry, no pallor noted. There is no rash noted. Head: Normocephalic, atraumatic Eye: Normal conjunctiva, no drainage, EOMI. PERRL. Ears, Nose, Mouth, and Throat: oral mucosa is moist. Nares patent. Mouth without vesicles. Cardiovascular: Regular Rate and Rhythm, no murmurs, gallops, or rubs Respiratory: Patient is in no distress, no accessory muscle use, lungs are clear to auscultation, no wheezing, rales or rhonchi Back: non-tender, no CVA tenderness bilaterally to percussion. NO CTLS midline or paraspinal tenderness to palpation. GI: Soft, Mild tenderness to palpation to left upper quadrant, no other guarding, rebound, rigidity. No peritoneal signs. No flank pain bilateral. Otherwise no tenderness to palpation, no masses appreciated. No rebound, guarding, or rigidity noted. Musculoskeletal: The patient has full range of motion of all extremities and joints with no difficulty. Patient has no motor, no sensory deficits. Neurological: A&O x4, normal speech, no focal neurological deficits. Psychiatric: Cooperative Const Vital Signs: 01/02/23 09:06 01/02/23 12:28 Temperature 97.8 F Temperature Source Temporal Pulse Rate 101 H 87 Respiratory Rate 18 16 Blood Pressure 140/68 H 112/58 L Blood Pressure Mean 92 76 Pulse Ox 98 94 Oxygen Delivery Method Room Air Room Air MDM MDM MDM Narrative Medical decision making narrative: Patient was educated on urinary tract infection, dehydration, proteinuria at discharge and on discharge paper. Patient will follow up with repeat urine testing next week. Lab Data Attestation: I reviewed the patient's lab results. Labs: Laboratory Results - last 24 hr 01/02/23 01/02/23 01/02/23 09:31 09:31 09:47 WBC 5.1 RBC 5.16 Hgb 17.1 H Hct 49.9 H MCV 96.7 MCH 33.1 H MCHC 34.3 RDW Std Deviation 42.7 RDW Coeff of Bing 11.9 Plt Count 153 MPV 9.9 Immature Gran % (Auto) 0.200 Neut % (Auto) 47.4 Lymph % (Auto) 40.9 Citrus % (Auto) 7.8 Eos % (Auto) 2.9 Baso % (Auto) 0.8 Absolute Neuts (auto) 2.4 Absolute Lymphs (auto) 2.10 Nucleated RBC % 0 Sodium 143 Potassium 3.6 Chloride 106 Carbon Dioxide 29.0 Anion Gap 8 BUN 11 Creatinine 0.45 L Estim Creat Clear Calc 100.61 Est GFR (MDRD) Af Amer 183 Est GFR (MDRD) Non-Af 151 BUN/Creatinine Ratio 24.6 H Glucose 105 Calcium 8.5 Total Bilirubin 0.30 AST 46 H ALT 57 H Alkaline Phosphatase 95 Total Protein 7.4 Albumin 3.6 Globulin 3.8 Albumin/Globulin Ratio 0.9 Lipase 43 Urine Color Yellow Urine Clarity Clear Urine pH 6.5 Ur Specific [place] 1.015 Urine Protein 30 H Urine Glucose (UA) Normal Urine Ketones 15 H Urine Occult Blood 10 H Urine Nitrite Negative Urine Bilirubin Negative Urine Urobilinogen Normal Ur Leukocyte Esterase 100 H Urine RBC 0 SEEN Urine WBC 5-10 SEEN Ur Squamous Epith Cells 0 SEEN Urine Bacteria RARE Urine Mucus 0 SEEN Radiography Chest X-Ray - ED: Read by ED Physician (Chest x-ray and abdominal x-ray shows no acute cardiopulmonary disease, no air-fluid levels, normal gas pattern, no obstruction. No ileus.) Diagnostic Testing: Clinical Impression(s) from Imaging Studies Acute Abdomen Series 01/02/23 09:16 IMPRESSION: Negative chest and abdominal series. Electronically Signed: Michela Duran MD at 10:24 EDT , Additional Tests and Interventions Additional Tests or Interventions: Patient felt better after IV fluids. Patient does have evidence of proteinuria and urinary tract infection. Patient was started on antibiotic. Patient to increase fluids. Patient will follow up with PCP for repeat urine testing. Patient was recommended that she needs to have a colonoscopy because she is artery had 2 different CAT scans, x-rays, and ultrasound. Patient's lab work is unremarkable. Patient understands to follow up with PCP or GI physician. No questions from patient or daughter discharge. Discharge Plan Triage Chief Complaint: Abd Pain ED Provider: Thaddeus Leija Dx/Rx/DC Orders Clinical Impression: Chronic abdominal pain, UTI (urinary tract infection), Dehydration, Proteinuria Instructions: Abdominal Pain, Urinary Tract Infections in Women, ED Dehydration (Adult), ED Proteinuria Prescriptions: New ciprofloxacin HCl [ciprofloxacin HCl] 500 mg tablet 500 mg PO BID Qty: 6 0RF No Action Omeprazole [Prilosec] 40 MG capsule 40 mg PO DAILY Primary Care Provider: Arabella Mitchell Referrals: Arabella Mitchell MD [Primary Care Provider] - Activity Restrictions/Additional Instructions: You have no signs of significant constipation on today's x-ray. You do have evidence of urinary tract infection. Urine culture is pending. Antibiotics were started. Follow-up with PCP. He may need to follow-up with GI physician for possible endoscopy or colonoscopy if you continue to have abdominal pain since you have multiple CAT scans, ultrasounds and test that are not showing any other acute abnormalities. You do not have any significant signs of any type of moderate to severe constipation. Disposition Disposition: Home, Self Care Discharge Date/Time: 01/02/23 13:56
== END 2023-01-02 13:56 | disposition home or self-care (01) ==
PROVIDERS: Emergency Provider Emergency Medicine; PCP Family Medicine; Visit Provider Emergency Medicine
DX: N39.0 Urinary tract infection, site not specified (principal); E86.0 Dehydration; R80.9 Proteinuria, unspecified; G89.29 Other chronic pain
CPT/HCPCS: 74022; 80053; 81001; 83690; 85025; 96361; 96372; 96374; 96375; 99283; J7030; A4216

== ENCOUNTER → 2023-04-25 | Outpatient (CLI) | payer BC, SELFPAY ==
[2023-04-25 18:43] LABS: Cholesterol 258 mg/dL (200); High Density Lipoprotein 58 mg/dL; T4 Total, Thyroxin 7.8 ug/dL (4.8-13.9); Thyroid Stim Hormone (TSH) 1.07 uIU/mL (0.358-3.74); Triglycerides 994 mg/dL
== END | disposition home or self-care (01) ==
LOC: MFPLAB 16:40
PROVIDERS: PCP Family Medicine; Visit Provider Family Medicine
DX: Z00.00 Encounter for general adult medical examination without abnormal findings (principal); E03.9 Hypothyroidism, unspecified
CPT/HCPCS: 36415; 80061; 84436; 84443

== ENCOUNTER → 2023-06-01 | Outpatient (CLI) | payer BC, SELFPAY ==
--- NOTE | 2023-06-01 09:14 | BI_ITS ---
MAMMOGRAPHY - BILATERAL SCREENING REASON FOR EXAM: Female, 63 years old. Routine annual screening examination. PERTINENT HISTORY: Non-contributory. TECHNIQUE: Digital bilateral breast macrina (3D mammographic acquisition) in the CC and MLO projections. 2-D mediolateral oblique (MLO) and craniocaudad (CC) views of both breasts were obtained. CAD: Full Field Digital Mammography with Computer Added Detection was performed. COMPARISON: Comparison is made with prior examination of May 31, 2022 and May 28, 2021. FINDINGS: Breast Composition: There are scattered areas of fibroglandular density. There are no dominant masses or suspicious calcifications. No other significant abnormalities are identified. There has been no significant change since the prior study. BI/SCRN MAMM (CAD)W/MACRINA BILAT IMPRESSION: Stable bilateral screening mammogram. Yearly follow-up mammogram recommended. (A) ASSESSMENT CATEGORY: BIRADS Category 1: Negative. A letter regarding these results will be sent to the patient by the facility within 30 days. Approximately 10% of breast cancers are not detected by mammography. A normal mammogram should not delay biopsy of a clinically suspicious abnormality. [id number] Electronically Signed: Cyrus No MD at 15:06 EDT ,
--- NOTE | 2023-06-01 09:21 | BD_ITS ---
STUDY: DUAL ENERGY X-RAY ABSORPTIOMETRY / DXA REASON FOR EXAM: Female, 63 years old. [id number] TECHNIQUE: Bone Mineral Density (BMD) measurements of lumbar spine and bilateral hips were obtained. COMPARISON: None. FINDINGS: Lumbar Spine (L1-L4): g/cm2 (0.807) / T-score (-2.2) / Z-score (-0.5) Findings are suggestive of osteopenia with a high fracture risk. Left Femur Total: g/cm2 (0.670) / T-score (-2.2) / Z-score (-1.1) Left Femoral Neck: g/cm2 (0.445) / T-score (-3.6) / Z-score (-2.2) Right Femur Total: g/cm2 (0.687) / T-score (-2.1) / Z-score (-1.0) Right Femoral Neck: g/cm2 (0.502) / T-score (-3.1) / Z-score (-1.7) BD/Dexa Bone Density Study IMPRESSION: The patient is considered osteoporotic as outlined below according to World Zachary Organization (WHO) criteria with a high fracture risk. Reference Information: The T-score is the number of standard deviations above or below the standard which is normal for young adults at their peak bone mineral density. The World Health Organization (WHO) interprets the T-scores as follows: Above -1 Normal bone density Between -1 and -2.5 Osteopenia Equal to / or below -2.5 Osteoporosis As a practical clinical guideline, osteopenia may be graded as follows: Mild -1 through -1.5 Moderate -1.6 through -2.0 Severe -2.1 through -2.4 The Z-score is the number of standard deviations above or below age-matched controls. A Z-score of less than -1.5 would be considered abnormal. References: 1. NIH Osteoporosis and Related Bone Diseases www osteo.org 2. International Society for Clinical Densitometry www iscd.org 3. National Osteoporosis Foundation www nof.org Electronically Signed: Cyrus No MD at 9:12 EDT ,
== END | disposition home or self-care (01) ==
LOC: OPBD 09:13
PROVIDERS: PCP Family Medicine; Referring Provider Family Medicine; Visit Provider Family Medicine
DX: Z00.00 Encounter for general adult medical examination without abnormal findings (principal); Z12.31 Encounter for screening mammogram for malignant neoplasm of breast; N95.9 Unspecified menopausal and perimenopausal disorder
CPT/HCPCS: 77063; 77067; 77080

== ENCOUNTER → 2023-07-07 | Outpatient (CLI) | payer BC, SELFPAY ==
[2023-07-07 11:58] LABS: AST(SGOT) 17 U/L (15-37); Alanine Aminotransfer ALT/SGPT 35 U/L (13-56); Cholesterol 148 mg/dL (200); High Density Lipoprotein 66 mg/dL; Triglycerides 136 mg/dL; Very Low Density Lipoprotein 27 mg/dL (5-40)
== END | disposition home or self-care (01) ==
LOC: MFPLAB 10:02
PROVIDERS: PCP Family Medicine; Visit Provider Family Medicine
DX: E78.2 Mixed hyperlipidemia (principal)
CPT/HCPCS: 36415; 80061; 84450; 84460

== ENCOUNTER → 2024-01-01 | Outpatient (CLI) | payer BC, SELFPAY ==
--- NOTE | 2024-01-01 10:23 | RAD_ITS ---
STUDY: X-RAY - ABDOMEN/PELVIS REASON FOR EXAM: Female, 63 years old. Left upper quadrant pain. TECHNIQUE: Two AP supine views of the abdomen and pelvis on 3 images. COMPARISON: None. FINDINGS: Normal visualized lung bases. Normal bowel gas pattern with air seen to the rectosigmoid. Moderate amount of feces in the colon. 3 mm in diameter calcification projected over the upper pole of the right kidney. 6 mm in diameter calcification projected over the spleen presumably representing a splenic granuloma. Normal osseous structures. RAD/Abd Inc Decub and/or Erect IMPRESSION: Probable right nephrocalcinosis and splenic granuloma. No acute abnormality. Electronically Signed: Daniel Stallings MD at 13:31 EDT ,
== END | disposition home or self-care (01) ==
PROVIDERS: PCP Family Medicine; Referring Provider Family Medicine; Visit Provider Family Medicine
DX: R10.12 Left upper quadrant pain (principal)
CPT/HCPCS: 74019

== ENCOUNTER → 2024-02-21 | Outpatient (CLI) | payer BC, SELFPAY ==
--- NOTE | 2024-02-21 12:46 | US_ITS ---
STUDY: THYROID ULTRASOUND REASON FOR EXAM: Female, 63 years old. pain and history of thyroid mass TECHNIQUE: Ultrasound evaluation of the thyroid was performed with real-time and static meek-scale imaging. COMPARISON: 07/06/2016 FINDINGS: RIGHT LOBE: The right lobe of the thyroid gland measures 1.6 x 0.6 x 0.8 cm. There is a heterogeneous echotexture. There are no demonstrated solid, cystic or complex lesions. LEFT LOBE: The left lobe of the thyroid gland measures 1.1 x 0.5 x 1.0 cm. There is a heterogeneous echotexture. There are no demonstrated solid, cystic or complex lesions. ISTHMUS: The isthmus measures 1 mm thick. . The regional lymph nodes are normal. US/Thyroid IMPRESSION: Suspect chronic thyroiditis with atrophy of the gland but no dominant nodule. Electronically Signed: Raffaele Santiago MD at 16:19 EDT ,
== END | disposition home or self-care (01) ==
PROVIDERS: PCP Family Medicine; Referring Provider Family Medicine; Visit Provider Family Medicine
DX: E07.9 Disorder of thyroid, unspecified (principal)
CPT/HCPCS: 76536

== ENCOUNTER → 2024-04-26 | Outpatient (CLI) | payer BC, SELFPAY ==
[2024-04-26 18:53] LABS: AST(SGOT) 26 U/L (15-37); Alanine Aminotransfer ALT/SGPT 41 U/L (13-56); Cholesterol 204 mg/dL (200); High Density Lipoprotein 85 mg/dL; Triglycerides 341 mg/dL; Very Low Density Lipoprotein 68 mg/dL (5-40)
== END | disposition home or self-care (01) ==
LOC: MFPLAB 15:30
PROVIDERS: PCP Family Medicine; Visit Provider Family Medicine
DX: E78.2 Mixed hyperlipidemia (principal)
CPT/HCPCS: 36415; 80061; 84450; 84460

== ENCOUNTER → 2024-06-06 | Outpatient (CLI) | payer BC, SELFPAY ==
--- NOTE | 2024-06-06 13:54 | BI_ITS ---
MAMMOGRAPHY - BILATERAL SCREENING REASON FOR EXAM: Female, 64 years old. Routine annual screening examination. PERTINENT HISTORY: Non-contributory. TECHNIQUE: Digital bilateral breast macrina (3D mammographic acquisition) in the CC and MLO projections. 2-D mediolateral oblique (MLO) and craniocaudad (CC) views of both breasts were obtained. CAD: Full Field Digital Mammography with Computer Added Detection was performed. COMPARISON: Comparison is made with prior study dated June 01, 2023 and May 31, 2022. FINDINGS: Breast Composition: There are scattered areas of fibroglandular density. There are no dominant masses or suspicious calcifications. No other significant abnormalities are identified. There has been no significant change since the prior study. BI/SCRN MAMM (CAD)W/MACRINA BILAT IMPRESSION: Stable bilateral screening mammogram. Yearly follow-up mammogram recommended. (A) ASSESSMENT CATEGORY: BIRADS Category 1: Negative. A letter regarding these results will be sent to the patient by the facility within 30 days. Approximately 10% of breast cancers are not detected by mammography. A normal mammogram should not delay biopsy of a clinically suspicious abnormality. [id number] Electronically Signed: Cyrus No MD at 14:46 EDT ,
--- OUTSIDE RECORDS SUMMARY | 2024-06-06 16:41 | XMS RPT_ITS | CCD ---
Author Organization [facility] Care Team Providers Care Force Dispatcher Name Role Phone Arabella Mitchell Primary Care Provider Allergies Allergy Classification Reported Allergen(s) Allergy Type Date of Onset Reaction(s) Facility (1 source) Promethazine Drug Allergy 11-16-2015 Intolerance [facility] Medications Completed/Discontinued Medications Medication Drug Class(es) Dates Sig (Normalized) Sig (Original) omeprazole 40 mg delayed release oral capsule (1 source) Proton Pump Inhibitor take 1 capsule by mouth once daily Omeprazole 40 mg capsule Take 40 mg by mouth once daily. 0 Active Comment on above: Take 40 mg by mouth once daily. Problems Problem Classification Problem Date Documented Da te Episodic/Chronic Complications of surgical procedures or medical care (1 source) Postoperative hypothyroidism; Translations: [Hypothyroidism, postsurgical] 03-28-2016 Chronic Results Test Name Value Interpretation Reference Range Tadeo Matute 02-19-2016 CONVERTED CLINICAL HISTORY OPERATIVE PROCEDURE: Intraoperative ultrasound, Substernal thyroidectomy/near total thyroidectomy, Nerve integrity monitoring CLINICAL INFORMATION: Substernal and multi nodule goiter [facility] CONVERTED ELECTRONIC SIGNATURE RANDY MATTHEW M.D., PATHOLOGIST (Electronic signature on file) Final Signed Out: 02/19/2016 16:12 [facility] CONVERTED FINAL DIAGNOSIS FINAL DIAGNOSIS: A) SUBSTERNAL GOITER, EXCISION - GOITER. 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 [facility] CONVERTED GROSS DESCRIPTION GROSS DESCRIPTION: A) Substernal goiter Received in formalin labeled with the patient's name and as substernal goiter is a 22 gm somewhat lobulated yellow dark palumbo encapsulated nodule that measures 4.3 x 4.0 x 2.5 cm. The specimen is inked and serially sectioned to reveal a vaguely loculated variegated dusky meek-palumbo cut surface with colloid nodules and with focal calcific change. Upon further sectioning, a dark meek-palumbo nodule is identified that measures 1.0 cm in greatest dimension. The specimen is representatively submitted in cassettes A1-A6 following brief decalcification. B) Near total thyroidectomy Received in formalin labeled with the patient's name and as near total thyroidectomy is a 21 gm thyroidectomy specimen that measures 8.0 x 4.7 x 2.5 cm. The capsular surface is frayed. The right thyroid lobe is inked orange; left thyroid inked sandra; isthmus is inked green. Sectioning shows a dusky pink cut surface with multiple colloid nodules and with no discrete mass identified. The specimen is representatively submitted as follows: B1-B3 right lobe from superior to inferior (cassette B2 subject to decalcification); B4-B6 left lobe from superior to inferior). EM:[facility] CONVERTED ORDERING PROVIDER Ordering Provider: MARGARET RUIZ [facility] Encounters Encounter Date Encounter Type Care Provider Facility Start: 02-17-2016 End: 02-17-2016 Patient encounter procedure Margaret Ruiz Work Phone: [facility] Start: 02-17-2016 Results Only Margaret Ruiz Work Phone: [facility] Procedures Date Procedure Procedure Detail Performing Clinician Start: 02-17-2016 CONVERTED SURGICAL PATHOLOGY Margaret Ruiz Work Phone: Start: 12-09-2015 Colonoscopy Margaret wallace Plan of Treatment Date Care Activity Detail Author Start: 12-08-2020 Colonoscopy COLONOSCOPY [facility] Start: 04-14-2020 Influenza vaccination INFLUENZA (#1) [facility] Start: 2010 SHINGRIX VACCINE (1 of 2) CONTRERAS GRIX VACCINE (1 of 2) [facility] Start: 2005 DIABETES SCREEN DIABETES SCREEN [facility] Start: 2005 LIPID SCREEN LIPID SCREEN [facility] Start: 2000 Mammography MAMMOGRAM [facility] Start: 1990 HPV TESTING HPV TESTING [facility] Start: 1981 PAP TESTING PAP TESTING [facility] Start: 1979 Urine microalbumin profile DTAP,TDAP ,TD (1 - Tdap) [facility] Start: 1978 ANNUAL PCP TEAM NURSE HEAD CANDICE DISEASE VISIT ANNUAL PCP TEAM CHRONIC DISEASE VISIT [facility] Start: 1978 HEPATITIS C SCREENING HEPATITIS C GAL WALLS [facility] Start: 1978 HIV SCREENING HIV SCREENING [facility] Payers Date Payer Category Payer Private Health Insurance [facility] PPO [id number] 2011-2019 PPO [id number] Social History Date Type Detail Facility [facility]: 12-17-2015 [facility] Start: 12-17-2015 Alcohol intake Current drinke r of alcohol (finding) [facility] Start: 11-30-2015 Alcohol Comment occasional [facility] Sex Assigned At Not on file [facility] Advance Directives Documents on File Type Date Recorded Patient Equine Dentist Expl anation Advance Directive(s) 12/09/2015 9:53 AM Additional Source Comments Source Comments (unrecognize d section and content) In the event this informatio n is protected by the Federal Confidentiality of Alcohol and Drug Abuse Patient Records regulations: The Federal rules restrict any use of the information to criminally investigate or prosecute any alcohol or drug abuse patient.[facility] FOR RECORDS PERTAINING TO PATIENTS WHO ARE OR HAVE BEEN ENROLLED IN A CHEMICAL DEPENDENCY/SUBSTANCEABUSE PROGRAM, SOME INFORMATION MAY BE OMITTED. This clinical summary was aggregated from multiple sources. Caution should be exercised in using it in the provision of clinical care. This summary normalizes information from multiple sources, and as a consequence, information in this document may materially change the coding, format and clinical context of patient data. In addition, data may be omitted in some cases. CLINICAL DECISIONS SHOULD BE BASED ON THE PRIMARY CLINICAL RECORDS. [employer] [facility]. provides no warranty or guarantee of the accuracy or completeness of information in this document.
== END | disposition home or self-care (01) ==
LOC: OPBI 13:54
PROVIDERS: PCP Family Medicine; Referring Provider Family Medicine; Visit Provider Family Medicine
DX: Z12.31 Encounter for screening mammogram for malignant neoplasm of breast (principal)
CPT/HCPCS: 77063; 77067

== ENCOUNTER → 2025-05-01 | Outpatient (CLI) | payer BC, SELFPAY ==
--- NOTE | 2025-05-01 14:16 | RAD_ITS ---
PROCEDURE: ABD INC DECUB AND/OR ERECT 05/01/2025 REASON FOR EXAM: ABOMINAL PAIN TECHNIQUE: Procedure Code: RADABDMV Modality: DX Procedure: ABD INC DECUB AND/OR ERECT COMPARISON: January 01, 2024, December 14, 2022 FINDINGS: Bowel gas: Gas is seen within the mildly distended stomach with air-fluid level. The small bowel and colon is otherwise unremarkable. Calcifications: Faintly seen, 4 mm calculus overlying the right upper pole is similar to prior CT of December 14, 2022. Bones: Mild curvature lower lumbar spine to the right may be positional or related to spasm. Other: No organomegaly. RAD/Abd Inc Decub and/or Erect IMPRESSION: Gas and fluid-filled stomach. Small calculus right upper pole is unchanged. Reading Location: [id number]
--- OUTSIDE RECORDS SUMMARY | 2025-05-01 18:33 | XMS RPT_ITS | CCD ---
Author Organization [facility] Care Team Providers Care Shade Cutter Name Role Phone Arabella Mitchell Primary Care Provider [phone] Paula Arabella S Primary Care Unavailable Jolliff, Arabella S Attending Unavailable Jolliff, Arabella S Referring Unavailable Jolliff, Arabella S Primary Care Unavailable Jolliff, Arabella S Attending Unavailable Jolliff, Arabella S Referring Unavailable Jolliff, Arabella S Primary Care Unavailable Jolliff, Arabella S Attending Unavailable Jolliff, Arabella S Primary Care Unavailable Jolliff, Arabella S Attending Unavailable Jolliff, Arabella S Referring Unavailable Jolliff, Arabella S Primary Care Unavailable Jolliff, Arabella S Attending Unavailable Allergies Allergy Classification Reported Allergen(s) Allergy Type Date of Onset Reaction(s) Facility (1 source) Promethazine Drug Allergy 11-16-2015 Intolerance [facility] Medications Current Medications Medication Drug Class(es) Dates Sig (Normalized) Sig (Original) ciprofloxacin 500 mg oral tablet (3 sources) Quinolone Antimicrobial Start: 01-02-2023 take 500 mg by mouth twice daily Ciprofloxacin Hcl Active 500 MG PO TWICE A DAY January 01, 2023 11:00pm omeprazole 40 mg delayed release oral capsule (14 sources) Proton Pump Inhibitor Start: 12-10-2015 take 1 capsule by mouth once daily Omeprazole (Prilosec) 40 MG capsule Active 40 MG PO DAILY December 09, 2015 11:00pm Comment on above: Take 40 mg by mouth once daily. Problems Active Problems Problem Classification Problem Date Documented Date Episodic/Chronic Complications of surgical procedures or medical care (1 source) Postoperative hypothyroidism; Translations: [Hypothyroidism, postsurgical] 03-28-2016 Chronic Disorders of lipid metabolism (1 source) Mixed hyperlipidemia; Translations: [Mixed hyperlipidemia] Onset: 05-20-2024 Chronic Fluid and electrolyte disorders (3 sources) Dehydration; Translations: [Dehydration] 01-10-2023 Episodic Genitourinary symptoms and ill-defined conditions (3 sources) Proteinuria; Translations: [Proteinuria, unspecified] 01-10-2023 Episodic Other screening for suspected conditions (not mental disorders or infectious disease) (1 source) Encounter for screening mammogram for malignant neoplasm of breast; Translations: [Encounter for screening mammogram for malignant neoplasm of breast] Onset: 07-01-2024 Episodic Urinary tract infections (3 sources) Urinary tract infectious disease; Translations: [Urinary tract infection, site not specified] 01-10-2023 Episodic Past or Other Problems Problem Classification Problem Date Documented Da te Episodic/Chronic Abdominal pain (4 sources) Chronic abdominal pain; Translations: [Unspecified abdominal pain] Onset: 01-09-2024 01-10-2023 Episodic Thyroid disorders (1 source) Disorder of thyroid, unspecified; Translations: [Disorder of thyroid, unspecified] Onset: 02-29-2024 Episodic Results Test Name Value Interpretation Reference Range Facility SCRN MAMM (CAD)W/MACRINA BILATo n 06-06-2024 SCRN MAMM (CAD)W/MACRINA BILAT [facility] [address] [place] [id number] SCRN MAMM (CAD)W/MACRINA BILAT MR#: [id number] Acct: [id number] Name: KATIANA ANTONIO Rep #: [id number] : 1960 F 64 From: Cyrus laureano MD PCP: Dr. Arabella Mitchell MD Status: [facility] Study: SCRN MAMM (CAD)W/MACRINA BILAT Date of Exam: 05/15 12/05 Exam# [id number] Ordering Dr: Arabella Mitchell MD [id number] MAMMOGRAPHY - BILATERAL SCREENING REASON FOR EXAM: Female, 64 years old. Routine annual screening examination. PERTINENT HISTORY: Non-contributory. TECHNIQUE: Digital bilateral breast macrina (3D mammographic acquisition) in the CC and MLO projections. 2-D mediolateral oblique (MLO) and craniocaudad (CC) views of both breasts were obtained. CAD: Full Field Digital Mammography with Computer Added Detection was performed. COMPARISON: Comparison is made with prior study dated June 01, 2023 and May 31, 2022. FINDINGS: Breast Composition: There are scattered areas of fibroglandular density. There are no dominant masses or suspicious calcifications. No other significant abnormalities are identified. There has been no significant change since the prior study. BI/SCRN MAMM (CAD)W/MACRINA BILAT IMPRESSION: Stable bilateral screening mammogram. Yearly follow-up mammogram recommended. (A) ASSESSMENT CATEGORY: BIRADS Category 1: Negative. A letter regarding these results will be sent to the patient by the facility within 30 days. Approximately 10% of breast cancers are not detected by mammography. A normal mammogram should not delay biopsy of a clinically suspicious abnormality. [id number] Electronically Signed: Cyrus No MD at 14:46 EDT Reading Location ID and State: [facility] / [place] , Service support , CC: Dr. Arabella Mitchell MD Warp Bleaching Vat Tender: Signed Normal [facility] AST(SGOT)on 04-26-2024 AST [Catalytic activity/Vol] 26 U/L Normal 15-37 [facility] Comment on above: Order Comment: Order Date: 07/07/23 Order Info: [id number] - LIPID Order Info: 192-8 - AST Order Info: [id number] - ALT Performed By: #### L 501.4100, L501.4405, L500.4100 #### [facility] [address] [place], [address] Alanine Aminotransferas (SGP T)on 04-26-2024 ALT [Catalytic activity/Vol] 41 U/L Normal 13-56 [facility] Comment on above: Order Comment: Order Date: 07/07/23 Order Info: [id number] - LIPID Order Info: 1920-03 - AST Order Info: [id number] - ALT Performed By: #### L 501.4100, L501.4405, L500.4100 #### [facility] [address] [place], [address] Lipid Profileon 04-26-2024 Cholesterol [Mass/Vol] 204 mg/dL High 200 [facility] Comment on above: Order Comment: Order Date: 07/07/23 Order Info: [id number] - LIPID Order Info: 1920-03 - AST Order Info: [id number] - ALT Result Comment: <200 mg/dL Desirable 200-240 mg/dL Borderline >240 mg/dL High Risk Performed By: #### L 501.4100, L501.4405, L500.4100 #### [facility] [address] [place], [address] Cholesterol in HDL [Mass/Vol] 85 mg/dL Normal [facility] Comment on above: Order Comment: Order Date: 07/07/23 Order Info: [id number] - LIPID Order Info: 1920-03 - AST Order Info: 1742-01 - ALT Result Comment: The drugs N-Acetylcysteine and Metamizole may falsely depress this assay. Reference Range HDL <40 mg/dL Low HDL Cholesterol HDL >or= 60 mg/dL High HDL Cholesterol Performed By: #### L 501.4100, L501.4405, L500.4100 #### [facility] [address] [place], [address] Cholesterol in LDL [Mass/Vol] 51 mg/dL Normal 0-130 [facility] Comment on above: Order Comment: Order Date: 07/07/23 Order Info: [id number] - LIPID Order Info: 1920-03 - AST Order Info: 1742-01 - ALT Performed By: #### L 501.4100, L501.4405, L500.4100 #### [facility] [address] [place], [address] Cholesterol in VLDL [Mass/Vol] 68 mg/dL High 5-40 [facility] Comment on above: Order Comment: Order Date: 07/07/23 Order Info: [id number] - LIPID Order Info: 1920-03 - AST Order Info: 1742-01 - ALT Performed By: #### L 501.4100, L501.4405, L500.4100 #### [facility] [address] [place], [address] Triglyceride [Mass/Vol] 341 mg/dL High [facility] Comment on above: Order Comment: Order Date: 07/07/23 Order Info: [id number] - LIPID Order Info: 1920-03 AST Order Info: 1742-01 - ALT Result Comment: The drugs N-Acetylcysteine and Metamizole may falsely depress this assay. Serum Triglycerides Reference Interval Normal <150 mg/dL Borderline high 150 - 199 mg/dL High 200 - 499 mg/dL Very High > or = 500 mg/dL Performed By: #### L 501.4100, L501.4405, L500.4100 #### [facility] [address] [place], [address] Thyroidon 02-21-2024 Thyroid [facility] [address] [place] [address] Thyroid MR#: [id number] Acct: [id number] Name: KATIANA ANTONIO Rep #: [id number] : 1960 F 63 From: Raffaele Santiago MD PCP: Dr. Arabella Mitchell MD Status: DEP CLI Study: Thyroid Date of Exam: 02/21/24 Exam# [id number] Ordering Dr: Arabella Mitchell MD [id number] STUDY: THYROID ULTRASOUND REASON FOR EXAM: Female, 63 years old. pain and history of thyroid mass TECHNIQUE: Ultrasound evaluation of the thyroid was performed with real-time and static meek-scale imaging. COMPARISON: 07/06/2016 FINDINGS: RIGHT LOBE: The right lobe of the thyroid gland measures 1.6 x 0.6 x 0.8 cm. There is a heterogeneous echotexture. There are no demonstrated solid, cystic or complex lesions. LEFT LOBE: The left lobe of the thyroid gland measures 1.1 x 0.5 x 1.0 cm. There is a heterogeneous echotexture. There are no demonstrated solid, cystic or complex lesions. ISTHMUS: The isthmus measures 1 mm thick. . The regional lymph nodes are normal. US/Thyroid IMPRESSION: Suspect chronic thyroiditis with atrophy of the gland but no dominant nodule. Electronically Signed: Raffaele Santiago MD at 16:19 EDT , CC: Dr. Arabella Mitchell MD Warp Bleaching Vat Tender: Signed Normal [facility] Abd Inc Decub and/or Erecton 01-01-2024 Abd Inc Decub and/or Erect [facility] [address] [place], [place] [id number] Abd Inc Decub and/or Erect MR#: [id number] Acct: [id number] Name: KATIANA ANTONIO Rep #: [id number] : 1960 F 63 From: Daniel Stallings MD PCP: Dr. Arabella Mitchell MD Status: REG CL Study: Abd Inc Decub and/or Erect Date of Exam: 12/31 Exam# [id number] Ordering Dr: Arabella Mitchell MD [id number] STUDY: X-RAY - ABDOMEN/PELVIS REASON FOR EXAM: Female, 63 years old. Left upper quadrant pain. TECHNIQUE: Two AP supine views of the abdomen and pelvis on 3 images. COMPARISON: None. FINDINGS: Normal visualized lung bases. Normal bowel gas pattern with air seen to the rectosigmoid. Moderate amount of feces in the colon. 3 mm in diameter calcification projected over the upper pole of the right kidney. 6 mm in diameter calcification projected over the spleen presumably representing a splenic granuloma. Normal osseous structures. RAD/Abd Inc Decub and/or Erect IMPRESSION: Probable right nephrocalcinosis and splenic granuloma. No acute abnormality. Electronically Signed: Daniel Stallings MD at 13:31 EDT Reading Location ID and State: [address] [place] [address] , Service support , CC: Dr. Arabella Mitchell MD Warp Bleaching Vat Tender: Signed Normal [facility] AST(SGOT)on 07-07-2023 AST [Catalytic activity/Vol] 17 U/L Normal 15-37 [facility] Comment on above: Order Comment: Order Date: 04/28/23 Order Info: [id number] - LIPID Order Info: 1920-03 - AST Order Info: 1742-01 - ALT Performed By: #### L 500.4100, L501.4100, L501.4405 #### [facility] [address] [place], [address] Alanine Aminotransferas (SGP T)on 07-07-2023 ALT [Catalytic activity/Vol] 35 U/L Normal 13-56 [facility] Comment on above: Order Comment: Order Date: 04/28/23 Order Info: [id number] - LIPID Order Info: 1920-03 - AST Order Info: 1742-01 - ALT Performed By: #### L 500.4100, L501.4100, L501.4405 #### [facility] [address] [place], [address] Basophil percentageOrdered B y: Arabella Mitchell on 07-07-2023 Cholesterol [Mass/Vol] 148 mg/dL <200 [facility] Comment on above: <200 mg/dL Desirable 200-240 mg/dL Borderline >240 mg/dL High Risk Triglyceride [Mass/Vol] 136 mg/dL <[address] [facility] Comment on above: The drugs N-Acetylcy steine and Metamizole may falsely depress this assay.Serum Triglycerides Reference Interval Normal <150 mg/dL Borderline high 150 - 199 mg/dL High 200 - 499 mg/dL Very High > or = 500 mg/dL Laboratory - Chemistry and C hemistry - challengeOrdered By: Arabella Mitchell on 07-07-2023 ALT [Catalytic activity/Vol] 35 U/L 13-56 [facility] Lipid Profileon 07-07-2023 Cholesterol [Mass/Vol] 148 mg/dL Normal 200 [facility] Comment on above: Order Comment: Order Date: 04/28/23 Order Info: [id number] - LIPID Order Info: 1920-03 - AST Order Info: 1742-01 - ALT Result Comment: <200 mg/dL Desirable 200-240 mg/dL Borderline >240 mg/dL High Risk Performed By: #### L 500.4100, L501.4100, L501.4405 #### [facility] [address] [place], [address] Cholesterol in HDL [Mass/Vol] 66 mg/dL Normal [facility] Comment on above: Order Comment: Order Date: 04/28/23 Order Info: [id number] - LIPID Order Info: 1920-03 - AST Order Info: 1742-01 - ALT Result Comment: The drugs N-Acetylcysteine and Metamizole may falsely depress this assay. Reference Range HDL <40 mg/dL Low HDL Cholesterol HDL >or= 60 mg/dL High HDL Cholesterol Performed By: #### L 500.4100, L501.4100, L501.4405 #### [facility] [address] [place], [address] Cholesterol in LDL [Mass/Vol] 55 mg/dL Normal 0-130 [facility] Comment on above: Order Comment: Order Date: 04/28/23 Order Info: [id number] - LIPID Order Info: 1920-03 - AST Order Info: 1742-01 - ALT Performed By: #### L 500.4100, L501.4100, L501.4405 #### [facility] [address] [place], [address] Cholesterol in VLDL [Mass/Vol] 27 mg/dL Normal 5-40 [facility] Comment on above: Order Comment: Order Date: 04/28/23 Order Info: [id number] - LIPID Order Info: 1920-03 - AST Order Info: 1742-01 - ALT Performed By: #### L 500.4100, L501.4100, L501.4405 #### [facility] [address] [place], [address] Triglyceride [Mass/Vol] 136 mg/dL Normal [facility] Comment on above: Order Comment: Order Date: 04/28/23 Order Info: [id number] - LIPID Order Info: 1920-03 - AST Order Info: 1742-01 - ALT Result Comment: The drugs N-Acetylcysteine and Metamizole may falsely depress this assay. Serum Triglycerides Reference Interval Normal <150 mg/dL Borderline high 150 - 199 mg/dL High 200 - 499 mg/dL Very High > or = 500 mg/dL Performed By: #### L 500.4100, L501.4100, L501.4405 #### [facility] [address] [place], [address] Serum or plasma cholesterol in HDL measurement (mass/volume)Ordered By: Arabella Mitchell on 07-07-2023 Cholesterol in HDL [Mass/Vol] 66 mg/dL >40 [facility] Comment on above: The drugs N-Acetylcy steine and Metamizole may falsely depress this assay. Reference Range HDL <40 mg/dL Low HDL Cholesterol HDL >or= 60 mg/dL High HDL Cholesterol Serum or plasma cholesterol in VLDL measurement (mass/volume)Ordered By: Arabella Mitchell on 07-07-2023 Cholesterol in VLDL [Mass/Vol] 27 mg/dL 5-40 [facility] Serum or plasma low density lipoprotein (LDL) cholesterol measurement (mass/volume)Ordered By: Arabella Mitchell on 07-07-2023 Cholesterol in LDL [Mass/Vol] 55 mg/dL 0-130 [facility] Thin prep Papanicolaou smear with manual screeningOrdered By: Arabella Mitchell on 07-07-2023 Thin prep Papanicolaou smear with manual screening 17 U/L 15-37 [facility] Basophil percentageOrdered B y: Arabella Mitchell on 04-25-2023 Cholesterol [Mass/Vol] 258 mg/dL <200 [facility] Comment on above: Slight Lipemia, Resu lt may be falsely increased. <200 mg/dL Desirable 200-240 mg/dL Borderline >240 mg/dL High Risk Triglyceride [Mass/Vol] 994 mg/dL <[address] [facility] Comment on above: The drugs N-Acetylcy steine and Metamizole may falsely depress this assay. Slight Lipemia, Result may be falsely increased. TRIGLYCERIDE IS GREATER THAN 400 mg/dL. LDL RESULT IS INVALID AND WILL NOT BE REPORTED.Serum Triglycerides Reference Interval Normal <150 mg/dL Borderline high 150 - 199 mg/dL High 200 - 499 mg/dL Very High > or = 500 mg/dL Laboratory - Chemistry and C hemistry - challengeOrdered By: Arabella Mitchell on 04-25-2023 T4 [Mass/Vol] 7.8 ug/dL 4.8-13.9 [facility] No Panel InformationOrdered By: Arabella Mitchell on 04-25-2023 Thyroid Stimulating Hormone (TSH) 1.07 uIU/mL 0.358-3.74 [facility] Serum or plasma cholesterol in HDL measurement (mass/volume)Ordered By: Arabella Mitchell on 04-25-2023 Cholesterol in HDL [Mass/Vol] 58 mg/dL >40 [facility] Comment on above: The drugs N-Acetylcy steine and Metamizole may falsely depress this assay. Reference Range HDL <40 mg/dL Low HDL Cholesterol HDL >or= 60 mg/dL High HDL Cholesterol Serum or plasma cholesterol in VLDL measurement (mass/volume)Ordered By: Arabella Mitchell on 04-25-2023 Cholesterol in VLDL [Mass/Vol] [facility] Comment on above: Test not performed Serum or plasma low density lipoprotein (LDL) cholesterol measurement (mass/volume)Ordered By: Arabella Mitchell on 04-25-2023 Cholesterol in LDL [Mass/Vol] [facility] Comment on above: Test not performed Absolute lymphocyte countOrd ered By: Thaddeus Leija on 01-02-2023 Lymphocytes Auto (Unsp spec) [#/Vol] 2.10 10*3/uL 0.83-4.51 [facility] Basophil percentageOrdered B y: Thaddeus Leija on 01-02-2023 Basophil percentage 5-10 SEEN /hpf 0-[address] [facility] Basophils/100 WBC (Bld) 0.8 % 0-[address] [facility] Bilirubin [Mass/Vol] 0.30 mg/dL 0.20-1.00 [facility] Comment on above: For patients on eltr ombopag therapy, use of Dimension Rio TBIL is not recommended. Chloride [Moles/Vol] 106 mmol/L 98-107 [facility] Eosinophils/100 WBC (Bld) 2.9 % 0-5 [facility] Glucose [Mass/Vol] 105 mg/dL 74-106 [facility] Comment on above: Fasting Glucose resu lt from 100 to 125 mg/dL suggests IMPAIRED HOMEOSTASIS per A.D.A. criteria. Neutrophils (Bld) [#/Vol] 2.4 10*3/uL 2.0-7.7 [facility] Neutrophils/100 WBC (Bld) 47.4 % 47-70 [facility] Potassium [Moles/Vol] 3.6 mmol/L 3.5-5.1 [facility] Protein [Mass/Vol] 7.4 g/dL 6.4-8.2 [facility] Sodium [Moles/Vol] 143 mmol/L 136-145 [facility] WBC (Bld) [#/Vol] 5.1 10*3/uL 4.4-11.0 [facility] Bilirubin Test strip Ql (U)O rdered By: Thaddeus Leija on 01-02-2023 Bilirubin Ql (U) Negative Negative [facility] Blood erythrocytes count (nu mber/volume)Ordered By: Thaddeus Leija on 01-02-2023 RBC (Bld) [#/Vol] 5.16 10*6/uL 4.2-5.4 [facility] Blood hemoglobin measurement (mass/volume)Ordered By: Thaddeus Leija on 01-02-2023 Hemoglobin (Bld) [Mass/Vol] 17.1 g/dL 12.0-15.0 [facility] Blood lymphocytes/100 leukoc ytesOrdered By: Thaddeus Leija on 01-02-2023 Lymphocytes/100 WBC (Bld) 40.9 % 19-41 [facility] Blood monocytes/100 leukocyt esOrdered By: Thaddeus Leija on 01-02-2023 Monocytes/100 WBC (Bld) 7.8 % 0-[address] [facility] Blood platelet mean volumeOr dered By: Thaddeus Leija on 01-02-2023 Platelet mean volume (Bld) [Entitic vol] 9.9 fL 6.2-12.0 [facility] Determination of erythrocyte mean corpuscular volume (MCV)Ordered By: Thaddeus Leija on 01-02-2023 MCV (RBC) [Entitic vol] 96.7 fL 81-[address] [facility] Hematocrit Auto (Bld) [Volum e fraction]Ordered By: Thaddeus Leija on 01-02-2023 Hematocrit (Bld) [Volume fraction] 49.9 % 37-47 [facility] Ketones Test strip Ql (U)Ord ered By: Thaddeus Leija on 01-02-2023 Ketones Ql (U) 15 mg/dl Negative [facility] Laboratory - Chemistry and C hemistry - challengeOrdered By: Thaddeus Leija on 01-02-2023 ALP [Catalytic activity/Vol] 95 U/L 45-117 [facility] ALT [Catalytic activity/Vol] 57 U/L 13-56 [facility] CO2 [Moles/Vol] 29.0 mmol/L 21.0-32.0 [facility] Globulin (S) [Mass/Vol] 3.8 g/dL 2.2-4.[address] [facility] Lipase [Catalytic activity/Vol] 43 U/L 13-75 [facility] Comment on above: Please note:LIPASE r evised reference range effective 22. New Lipase methodology. Expected to produce lower values than the previous assay method. NEW Reference Range: 13 - 75 U/L Urea nitrogen/Creatinine [Mass ratio] 24.6 mg/mg 10-20 [facility] - Hematology and Cell countsOrdered By: Thaddeus Leija on 01-02-2023 Erythrocyte distribution width (RBC) [Entitic vol] 42.7 fL 35.1-43.9 [facility] Erythrocyte distribution width (RBC) [Ratio] 11.9 % 11.6-14.6 [facility] Immature granulocytes/100 WBC (Bld) 0.200 % 0.0-0.9 [facility] Comment on above: IG% - Immature Granu locytes (promyelocytes, myelocytes and metamyelocytes) > 1% indicates that a LEFT SHIFT is Present. MCH (RBC) [Entitic mass] 33.1 pg 27.0-32.0 [facility] Nucleated RBC/100 WBC (Bld) [Ratio] 0 % 0-5 [facility] MCHC Auto (RBC) [Mass/Vol]Or dered By: Thaddeus Leija on 01-02-2023 MCHC (RBC) [Mass/Vol] 34.3 g/dL 32-36 [facility] Mucus LM Ql (Urine sed)Order ed By: Thaddeus Leija on 01-02-2023 Mucus Ql (Urine sed) 0 SEEN /hpf [facility] Nitrite Test strip Ql (U)Ord ered By: Thaddeus Leija on 01-02-2023 Nitrite Ql (U) Negative Negative [facility] No Panel InformationOrdered By: Thaddeus Leija on 01-02-2023 Estimated Creatinine Clearance Calc 100.61 ml/min [facility] Estimated GFR (MDRD) Amer 183 mL/min >60 [facility] Comment on above: GFR Calc Estimated GFR (MDRD) Non-Af Amer 151 mL/min >60 [facility] Comment on above: Non- GFR Calc Platelets bldOrdered By: Darius Leija on 01-02-2023 Platelets (Bld) [#/Vol] 153 10*3/uL 150-450 [facility] Protein Test strip Ql (U)Ord ered By: Thaddeus Leija on 01-02-2023 Protein Ql (U) 30 mg/dl Negative [facility] Serum or plasma albumin babs urement (mass/volume)Ordered By: Thaddeus Leija on 01-02-2023 Albumin [Mass/Vol] 3.6 g/dL 3.2-5.0 [facility] Serum or plasma albumin/glob ulin mass ratioOrdered By: Thaddeus Leija on 01-02-2023 Albumin/Globulin [Mass ratio] 0.9 {ratio} 0.9-2.4 [facility] Serum or plasma calcium babs urement (mass/volume)Ordered By: Thaddeus Leija on 01-02-2023 Calcium [Mass/Vol] 8.5 mg/dL 8.5-10.1 [facility] Serum or plasma creatinine m easurement (mass/volume)Ordered By: Thaddeus Leija on 01-02-2023 Creatinine [Mass/Vol] 0.45 mg/dL 0.55-1.02 [facility] Comment on above: The validity of the calculated GFR & GFRAA in patients over 70 years has not been determined. Clinical correlation is essential. Serum or plasma urea nitroge n measurement (mass/volume)Ordered By: Thaddeus Leija on 01-02-2023 Urea nitrogen [Mass/Vol] 11 mg/dL 7-18 [facility] Squamous epithelial cells de tection in urine sediment by light microscopyOrdered By: Thaddeus Leija on 01-02-2023 Epithelial cells.squamous LM Ql (Urine sed) 0 SEEN /hpf 5-10 [facility] Thin prep Papanicolaou smear with manual screeningOrdered By: Thaddeus Leija on 01-02-2023 Thin prep Papanicolaou smear with manual screening 46 U/L 15-37 [facility] Thin prep Papanicolaou smear with manual screening 8 5-15 [facility] Urine blood detectionOrdered By: Thaddeus Leija on 01-02-2023 RBC Ql (U) 10 /ul Negative [facility] RBC Ql (U) 0 SEEN /hpf 0-5 [facility] Urine clarityOrdered By: Darius Leija on 01-02-2023 Clarity (U) Clear Clear [facility] Urine color determinationOrd ered By: Thaddeus Leija on 01-02-2023 Color (U) Yellow Yellow [facility] Urine glucose detectionOrder ed By: Thaddeus Leija on 01-02-2023 Glucose Ql (U) Normal mg/dl Normal [facility] Urine leukocyte esterase det ection by dipstickOrdered By: Thaddeus Leija on 01-02-2023 Leukocyte esterase Test strip Ql (U) 100 /ul Negative [facility] Urine pHOrdered By: Thaddeus Leija on 01-02-2023 pH (U) 6.5 [pH] 5.0 - 8.0 [facility] Urine sediment bacteria coun t by microscopy (number/high power field)Ordered By: Thaddeus Leija on 01-02-2023 Bacteria LM.HPF (Urine sed) [#/Area] RARE /hpf None Seen [facility] Urine specific gravity measu rementOrdered By: Thaddeus Leija on 01-02-2023 Specific gravity (U) [Rel density] 1.015 1.002-1.030 [facility] Urobilinogen Auto test strip Ql (U)Ordered By: Thaddeus Leija on 01-02-2023 Urobilinogen Ql (U) Normal mg/dl Normal [facility] Absolute lymphocyte countOrd ered By: Dr. Mitchell on 12-14-2022 Lymphocytes Auto (Unsp spec) [#/Vol] 2.29 10*3/uL 0.83-4.51 [facility] Basophil percentageOrdered B y: Dr. Mitchell on 12-14-2022 Amylase [Catalytic activity/Vol] 51 U/L 25-115 [facility] Basophils/100 WBC (Bld) 0.5 % 0-[address] [facility] Eosinophils/100 WBC (Bld) 2.5 % 0-5 [facility] Neutrophils (Bld) [#/Vol] 3.1 10*3/uL 2.0-7.7 [facility] Neutrophils/100 WBC (Bld) 51.0 % 47-70 [facility] WBC (Bld) [#/Vol] 6.1 10*3/uL 4.4-11.0 [facility] Blood erythrocytes count (nu mber/volume)Ordered By: Dr. Mitchell on 12-14-2022 RBC (Bld) [#/Vol] 4.66 10*6/uL 4.2-5.4 [facility] Blood hemoglobin measurement (mass/volume)Ordered By: Dr. Mitchell on 12-14-2022 Hemoglobin (Bld) [Mass/Vol] 15.3 g/dL 12.0-15.0 [facility] Blood lymphocytes/100 leukoc ytesOrdered By: Dr. Mitchell on 12-14-2022 Lymphocytes/100 WBC (Bld) 37.9 % 19-41 [facility] Blood monocytes/100 leukocyt esOrdered By: Dr. Mitchell on 12-14-2022 Monocytes/100 WBC (Bld) 7.9 % 0-[address] [facility] Blood platelet mean volumeOr dered By: Dr. Mitchell on 12-14-2022 Platelet mean volume (Bld) [Entitic vol] 10.8 fL 6.2-12.0 [facility] Determination of erythrocyte mean corpuscular volume (MCV)Ordered By: Dr. Mitchell on 12-14-2022 MCV (RBC) [Entitic vol] 98.3 fL 81-[address] [facility] Erythrocyte sedimentation ra teOrdered By: Dr. Mitchell on 12-14-2022 ESR (Bld) [Velocity] 5 mm/h 0-30 [facility] Hematocrit Auto (Bld) [Volum e fraction]Ordered By: Dr. Mitchell on 12-14-2022 Hematocrit (Bld) [Volume fraction] 45.8 % 37-47 [facility] Laboratory - Chemistry and C hemistry - challengeOrdered By: Dr. Mitchell on 12-14-2022 Lipase [Catalytic activity/Vol] 61 U/L 13-75 [facility] Comment on above: Please note:LIPASE r evised reference range effective 22. New Lipase methodology. Expected to produce lower values than the previous assay method. NEW Reference Range: 13 - 75 U/L Laboratory - Hematology and Cell countsOrdered By: Dr. Mitchell on 12-14-2022 Erythrocyte distribution width (RBC) [Entitic vol] 43.0 fL 35.1-43.9 [facility] Erythrocyte distribution width (RBC) [Ratio] 11.9 % 11.6-14.6 [facility] Immature granulocytes/100 WBC (Bld) 0.200 % 0.0-0.9 [facility] Comment on above: IG% - Immature Granu locytes (promyelocytes, myelocytes and metamyelocytes) > 1% indicates that a LEFT SHIFT is Present. MCH (RBC) [Entitic mass] 32.8 pg 27.0-32.0 [facility] Nucleated RBC/100 WBC (Bld) [Ratio] 0 % 0-5 [facility] MCHC Auto (RBC) [Mass/Vol]Or dered By: Dr. Mitchell on 12-14-2022 MCHC (RBC) [Mass/Vol] 33.4 g/dL 32-36 [facility] Platelets bldOrdered By: Dr. Mitchell on 12-14-2022 Platelets (Bld) [#/Vol] 173 10*3/uL 150-450 [facility] Otheron 02-19-2016 CONVERTED CLINICAL HISTORY OPERATIVE PROCEDURE: Intraoperative ultrasound, Substernal thyroidectomy/near total thyroidectomy, Nerve integrity monitoring CLINICAL INFORMATION: Substernal and multi nodule goiter [facility] CONVERTED ELECTRONIC SIGNATURE RADNY MATTHEW M.D., PATHOLOGIST (Electronic signature on file) Final Signed Out: 02/19/2016 16:12 [facility] CONVERTED FINAL DIAGNOSIS FINAL DIAGNOSIS: A) SUBSTERNAL GOITER, EXCISION - GOITER. 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 [facility] CONVERTED GROSS DESCRIPTION GROSS DESCRIPTION: A) [...] calcific change. Upon further sectioning, a dark meek-plaumbo nodule is identified that measures 1.0 cm [...] B4-B6 left lobe from superior to inferior). EM:[facility] CONVERTED ORDERING PROVIDER Ordering Provider: MARGARET SMITH [facility] Vital Signs Date Time Vital Sign Value Performing Clinician Faci lity 01-02-2023 12:28-0400 Diastolic blood pressure 58 mm[Hg] [facility] 01-02-2023 12:28-0400 Heart rate 87 /min [facility] 01-02-2023 12:28-0400 Respiratory rate 16 /min [facility] 01-02-2023 12:28-0400 SaO2% (BldA) [Mass fraction] 94 % [facility] 01-02-2023 12:28-0400 Systolic blood pressure 112 mm[Hg] [facility] 01-02-2023 09:06-0400 Body height 147.[address] [facility] 01-02-2023 09:06-0400 Body mass index (BMI) [Ratio] 22.6 kg/m2 [facility] 01-02-2023 09:06-0400 Body temperature 97.8 [degF] [facility] 01-02-2023 09:06-0400 Body weight 49.[address] [facility] Encounters Encounter Date Encounter Type Care Provider Facility Start: 06-06-2024 End: 06-06-2024 ambulatory Arabella S Jolliff Facility:[facility] Start: 04-26-2024 End: 04-26-2024 ambulatory Arabella S Jolliff Facility:[facility] Start: 02-21-2024 End: 02-21-2024 ambulatory Arabella S Jolliff Facility:[facility] Start: 01-01-2024 End: 01-01-2024 ambulatory Arabella S Jolliff Facility:[facility] Start: 07-07-2023 End: 07-07-2023 ambulatory [facility] Work Phone: Start: 07-07-2023 End: 07-07-2023 Patient encounter procedure [facility] Start: 07-07-2023 End: 07-07-2023 ambulatory Arabella Pressley Paula Facility:[facility] Start: 06-01-2023 End: 06-01-2023 ambulatory [facility] Work Phone: Start: 06-01-2023 End: 06-01-2023 Patient encounter procedure [facility]-Outpatient Bone Densitometry Work Phone: Start: 04-25-2023 End: 04-25-2023 ambulatory [facility] Work Phone: Start: 04-25-2023 End: 04-25-2023 [facility] Start: 01-02-2023 End: 01-02-2023 Emergency department patient visit [facility]-Emergency Department Work Phone: Start: 12-14-2022 End: 12-14-2022 ambulatory [facility] Work Phone: Start: 12-14-2022 End: 12-14-2022 Patient encounter procedure [facility]-Cat Scan, [facility] Start: 12-12-2022 End: 12-12-2022 ambulatory [facility] Work Phone: Start: 12-12-2022 End: 12-12-2022 Patient encounter procedure [facility]-Nuclear Medicine, [facility] Start: 11-17-2022 End: 11-17-2022 ambulatory [facility] Work Phone: Start: 11-17-2022 End: 11-17-2022 Patient encounter procedure [facility]-Ultrasound, [facility] Start: 11-09-2022 End: 11-09-2022 ambulatory [facility] Work Phone: Start: 11-09-2022 End: 11-09-2022 [facility] Start: 10-24-2022 End: 10-24-2022 ambulatory [facility] Work Phone: Start: 10-24-2022 End: 10-24-2022 Patient encounter procedure [facility] Start: 10-12-2022 End: 10-12-2022 ambulatory [facility] Work Phone: Start: 10-12-2022 End: 10-12-2022 Patient encounter procedure [facility] Start: 08-16-2022 End: 08-16-2022 ambulatory [facility] Work Phone: Start: 08-16-2022 End: 08-16-2022 Patient encounter procedure [facility]-Cat Scan, [facility] Start: 05-31-2022 End: 05-31-2022 ambulatory [facility] Work Phone: Start: 05-31-2022 End: 05-31-2022 Patient encounter procedure [facility]-Outpatient Breast Imaging Start: 05-18-2022 End: 05-18-2022 ambulatory [facility] Work Phone: Start: 05-18-2022 End: 05-18-2022 Patient encounter procedure [facility] Start: 02-17-2016 End: 02-17-2016 Patient encounter procedure Margaret Smith Work Phone: [facility] Start: 02-17-2016 Results Only Margaret Smith Work Phone: [facility] Procedures Date Procedure Procedure Detail Performing Clinician Start: 06-01-2023 Dual energy X-ray absorptiometry Start: 06-01-2023 Screening mammography Start: 01-02-2023 Diagnostic radiograp hy of abdomen Start: 12-14-2022 CT of abdomen with contrast Start: 12-12-2022 Radionuclide imaging of liver and/or biliary tract using radioactive isotope Start: 11-17-2022 Ultrasonography of abdomen Start: 10-12-2022 Diagnostic radiograp hy of abdomen, decubitus and erect Start: 10-12-2022 X-ray of both feet Start: 08-16-2022 CT of face Start: 05-31-2022 Screening mammography Start: 05-18-2022 X-ray of rib Start: 02-17-2016 CONVERTED SURGICAL PATHOLOGY Margaret Smith Work Phone: Start: 12-09-2015 Colonoscopy Margaret wallace Plan of Treatment Date Care Activity Detail Author Start: 06-01-2023 Dual energy X-ray absorptiometry Dexa Bone Density Study [facility] Start: 11-17-2022 Ultrasonography of abdomen Abdomen Limited [facility] Start: 11-09-2022 Procedure [facility] Start: 12-08-2020 Colonoscopy COLONOSCOPY [facility] Start: 04-14-2020 Influenza vaccination INFLUENZA (#1) [facility] Start: 2010 SHINGRIX VACCINE (1 of 2) SHINGRIX VACCINE (1 of 2) [facility] Start: 2005 DIABETES SCREEN DIABETES SCREEN [facility] Start: 2005 LIPID SCREEN LIPID SCREEN [facility] Start: 2000 Mammography MAMMOGRAM [facility] Start: 1990 HPV TESTING HPV TESTING [facility] Start: 1981 PAP TESTING PAP TESTING [facility] Start: 1979 Urine microalbumin profile DTAP,TDAP,TD (1 - Tdap) [facility] Start: 1978 ANNUAL PCP TEAM CHRONIC DISEASE VISIT ANNUAL PCP TEAM CHRONIC DISEASE VISIT [facility] Start: 1978 HEPATITIS C SCREENING HEPATITIS C SCREENING [facility] Start: 1978 HIV SCREENING HIV SCREENING [facility] Patient Education Abdominal Pain Urinary Tract Infections in Women ED Dehydration (Adult) ED Proteinuria [facility] Work Phone: Patient referral [facility] Work Phone: Immunizations Immunization Date Immunization Notes Care Provider Amelie scales 11-13-2020 Covid (Pfizer) [facility] 10-23-2020 Covid (Pfizer) [facility] Payers Date Payer Category Payer Self-pay [id number] 2023 Unknown [id number] 2016 Private Health Insurance [facility] [id number] 2011 Private Health Insurance [facility] [id number] 2011-2019 PPO [id number] Unknown [id number] Unknown [id number] Unknown [id number] Unknown [id number] Unknown [id number] Social History Date Type Detail Facility Start: 12-17-2015 Tobacco smoking stat [facility] Never smoker [facility] Start: 12-17-2015 Alcohol intake Current drinke r of alcohol (finding) [facility] Start: 11-30-2015 Alcohol Comment occasional [facility] Sex Assigned At Not on file [facility] Start: 12-10-2015 End: 01-02-2023 Tobacco smoking status [facility] Unknown if ever smoked [facility] Start: 1960 Sex Assigned At Female 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 Advance Directive(s) 12/09/2015 9:53 AM Advance Directive Response Recorded Date/ Time Living Will No December 10, 2015 10:34am Power of Fitness Centre Manager No December 09 10:34am Advance Directive Response Recorded Date/ Time Living Will No December 10, 2015 9:34am Power of Fitness Centre Manager No December 09 9:34am Advance Directive Response Recorded Date/ Time Living Will No January 02, 2023 9 :28am Power of Fitness Centre Manager No May 22nd, 2023 9:28am Advance Directive Response Recorded Date/ Time Living Will No January 02, 2023 8 :28am Power of Fitness Centre Manager No January 02, 2023 8:28am Chief Complaint and Reason for Visit Chief Complaint NEED ORDER Chief Complaint NEED ORDER SCREENING Chief Complaint NEED ORDER SCREENING SINUSITIS Chief Complaint SINUSITIS Chief Complaint SINUSITIS LUQ PAIN Chief Complaint LUQ PAIN BILAT UPPER QUAD PAIN Left upper quadrant pain Chief Complaint ABD PAIN Chief Complaint SCREENING/POST RITU Summary Purpose Family History No Family History Records Found Additional Source Comments Source Comments (unrecognize d section and content) In the event this informatio n is protected by the Federal Confidentiality of Alcohol and Drug Abuse Patient Records regulations: The Federal rules restrict any use of the information to criminally investigate or prosecute any alcohol or drug abuse patient.[facility] Goals (unrecognized section and content) Goals may be documented in a n alternate sectionGoals may be documented in an alternate sectionGoals may be documented in an alternate sectionGoals may be documented in an alternate sectionGoals may be documented in an alternate sectionGoals may be documented in an alternate sectionGoals may be documented in an alternate sectionGoals may be documented in an alternate sectionGoals may be documented in an alternate sectionGoals may be documented in an alternate sectionGoals may be documented in an alternate sectionGoals may be documented in an alternate sectionGoals may be documented in an alternate section Care Teams (unrecognized sec tion and content) Team Status: Active Member Role Status Dates Dr. Arabella Mitchell MD Family Provider Active Dr. Arabella Mitchell MD Primary Care Provider Active Team Status: Inactive Member Role Status Dates Dr. Arabella Mitchell MD Primary Care Provider Active Dr. Mj London MD Attending Provider, [facility] Provider Active Team Status: Inactive Member Role Status Dates Dr. rAabella Mitchell MD [facility] Active Team Status: Inactive Member Role Status Dates Dr. Arabella Mitchell MD Primary Care Provider Active Dr. Jerad Silva DPM Attending Provider Active Team Status: Inactive Member Role Status Dates Dr. Arabella Mitchell MD Primary Care Prov ider, Attending Provider, Referring Provider Active Team Status: Active Member Role Status Dates Dr. Arabella Mitchell MD Primary Care Prov ider, Attending Provider, Referring Provider Active Team Status: Active Member Role Status Dates Dr. Arabella Mitchell MD Primary Care Provider, Attendin g Provider Active Team Status: Inactive Member Role Status Dates Dr. Arabella Mitchell MD Primary Care Provider Active Dr. Thaddeus Leija DO Attending Provider, Emergency Pro vider Active INFORMATION SOURCE (unrecogn ized section and content) DATE CREATED AUTHOR 07/03/[address] [facility] FOR RECORDS PERTAINING TO PATIENTS WHO [...] BE BASED ON THE PRIMARY CLINICAL RECORDS. [employer] provides no warranty or guarantee of the accuracy or completeness of information in this document.
== END | disposition home or self-care (01) ==
LOC: MTRAD 14:11
PROVIDERS: PCP Family Medicine; Referring Provider Family Medicine; Visit Provider Family Medicine
DX: R10.9 Unspecified abdominal pain (principal)
CPT/HCPCS: 74019

== ENCOUNTER → 2025-05-19 | Outpatient (CLI) | payer BC, SELFPAY ==
[2025-05-19 10:37] LABS: AST(SGOT) 81 U/L (<=31); Alanine Aminotransfer ALT/SGPT 142 U/L (<=34); Albumin, Serum 4.2 g/dL (3.4-4.8); Alkaline Phosphatase 82 U/L (35-104); Anion Gap 14 (5-15); BUN 19 mg/dL (4-19); BUN/Creat Ratio 37.3 RATIO (10-20); Calcium,Total 8.7 mg/dL (7.6-11.0); Carbon Dioxide 25.2 mmol/L (21.0-32.0); Chloride 103 mmol/L (98-108); Cholesterol 160 mg/dL (<=200); Globulin 2.7 g/dL (2.2-4.2); Glucose 120 mg/dL (70-99); Low Density Lipoprotein Calc. 67 mg/dL; Potassium 3.7 mmol/L (3.3-5.1); Triglycerides 217 mg/dL; Very Low Density Lipoprotein 43 mg/dL (5-40); cholesterol:hdl ratio screen 3.19
[2025-05-19 14:39] LABS: Bilirubin, Direct 0.12 mg/dL (0.00-0.30)
== END | disposition home or self-care (01) ==
LOC: MTLAB 08:16
PROVIDERS: PCP Family Medicine; Referring Provider Family Medicine; Visit Provider Family Medicine
DX: Z00.00 Encounter for general adult medical examination without abnormal findings (principal); R03.0 Elevated blood-pressure reading, without diagnosis of hypertension; R74.8 Abnormal levels of other serum enzymes
CPT/HCPCS: 36415; 80053; 80061; 82248

== ENCOUNTER → 2025-06-10 | Outpatient (CLI) | payer BC, SELFPAY ==
--- NOTE | 2025-06-10 13:10 | BI_ITS ---
EXAM: BI/SCRN MAMM (CAD)W/MACRINA BILAT
== END | disposition home or self-care (01) ==
LOC: OPBI 13:09
PROVIDERS: PCP Family Medicine; Referring Provider Family Medicine; Visit Provider Family Medicine
DX: Z12.31 Encounter for screening mammogram for malignant neoplasm of breast (principal)
CPT/HCPCS: 77063; 77067